=== PATIENT | male | born 1945 | race Native Hawaiian/Other Pacific Islander ===

== ENCOUNTER 2022-09-15 06:07 | Day surgery (SDC) | payer MEDICARE ==
--- NOTE | 2022-09-14 10:32 | HP ---
DATE OF SURGERY: 09/15/2022 HISTORY OF PRESENT ILLNESS: The patient is a 77-year-old male presents with history of some colon polyps and history of Meier's. The patient had some diarrhea here recently after eating some bad [place] food. He reports a lot of gas and occasional cramping. Denies rectal bleeding. He had a gastric bypass in 2014. PAST MEDICAL HISTORY: Diabetes. Depression. Coronary artery disease. Hyperlipidemia. Hypertension. Prostate cancer. PAST SURGICAL HISTORY: Prostatectomy. Cardiac stent. Bariatric bypass 2014. ALLERGIES: SULFA. MEDICATIONS: Amlodipine, glipizide, atorvastatin, duloxetine, losartan, hydrochlorothiazide, Jardiance, trazodone, metoprolol. FAMILY HISTORY: Heart disease. SOCIAL HISTORY: Former smoker, occasional alcohol. REVIEW OF SYSTEMS: CONSTITUTIONAL: Denies fever or chills. CHEST: Denies shortness of breath. CVS: Denies chest pain. ABDOMEN: Denies abdominal pain. PHYSICAL EXAMINATION: GENERAL: No acute distress. CHEST: Nonlabored. No shortness of breath. CVS: Regular rate and rhythm. ABDOMEN: Soft. IMPRESSION: History of Meier's esophagus and history of colon polyps. PLAN: EGD and colonoscopy with Dr. Colby Bunn. As dictated by Angeline Alan NP.
[2022-09-15] MEDS ORDERED: Lactated Ringers 1,000 ML IV SCH (06:30)
[2022-09-15 07:08] VITALS: O2SAT 92
[2022-09-15] MEDS ORDERED: Versed 2 MG/2 ML Injection ONE (11:16)
[2022-09-15] MEDS ORDERED: DIPRIVAN 200 MG/20 ML IV ONE ×2 (11:16→12:24)
[2022-09-15 13:12] VITALS: BP 157/93; PULSE 74
--- NOTE | 2022-09-15 14:10 | OP ---
SURGERY DATE/TIME: 09/15/2022 1203 PREOPERATIVE DIAGNOSIS: Meier's disease, history of colon polyps. POSTOPERATIVE DIAGNOSES: 1) EGD. Normal anastomosis, normal gastric bypass. 2) Colon. Moderate sigmoid diverticulosis, redundant colon. PROCEDURES: 1) EGD. 2) Colonoscopy to cecum. SURGEON: Colby Bunn M.D. ANESTHESIA: MAC. COMPLICATIONS: None. CONDITION: Stable. DESCRIPTION OF PROCEDURE: Patient taken to endoscopy. MAC sedation provided. Scope introduced. Pharyngoesophageal junction normal. Esophagus normal. Gastroesophageal junction satisfactory. There was a 90 cc pocket. There was a normal gastric jejunostomy with no marginal ulceration, irritation or problem. Scope withdrawn. Anal digital examination satisfactory. Scope introduced. Scope advanced to the cecum. Base of the cecum was satisfactory. The patient had redundant colon otherwise satisfactory. No problems were seen today. Rescope - He is elderly. I would rescope him PRN only.
[2022-09-15 17:11] LABS: 027 TOX PROD PRESUMPTIVE NEGATIVE (NEGATIVE)
[2022-09-15 19:20] LABS: TOXIGENIC C. DIFF ORG POSITIVE (NEGATIVE)
== END 2022-09-15 13:30 | disposition home or self-care (01) ==
LOC: SDC 06:07
PROVIDERS: ATTEND Surgery
DX: Z09 Encounter for follow-up examination after completed treatment for conditions other than malignant neoplasm (principal); Z86.010 Personal history of colon polyps; K22.70 Barrett's esophagus without dysplasia; K57.30 Diverticulosis of large intestine without perforation or abscess without bleeding; E11.9 Type 2 diabetes mellitus without complications
CPT/HCPCS: 82947; 87045; 87046; 87328; 87329; 87493; 99100; J2250; J2704

== ENCOUNTER 2024-09-15 11:49 | Emergency (ER) | payer MEDICARE ==
[2024-09-15 12:00] VITALS: TEMP 98.8
--- NOTE | 2024-09-15 12:18 | ERPHSYRPT ---
- History of Present Illness Time Seen by Provider: 09/15/24 12:18 Historian: patient Exam Limitations: no limitations Patient Subjective Stated Complaint: Abdominal pain Triage Nursing Assessment: Patient ambulated back to ED and transferred self to bed. Patient A+O X3. Patient's skin pink, warm and dry. Patient complains of left sided flank/abdominal pain / that started yesterday and has gotten worse today. Patient states yesterday he had N/V and diarrhea but denies today. Abdomen soft and round with BS X 4. Physician History: The patient presents with severe abdominal pain and constipation. He has been experiencing severe abdominal pain radiating to his back since Monday morning, with a pain level of ten out of ten. He initially suspected constipation as the cause, given the absence of a bowel movement since Monday. In an attempt to relieve constipation, he took Colace, but it did not result in a bowel movement. He denies any history of kidney stones and mentions a high fluid intake. He reports increased urination frequency without pain, burning, or blood in the urine. No vomiting has occurred, but he experienced dry heaving on Monday. He has chills and shaking but denies having a fever. Timing/Duration: yesterday Activities at Onset: rest Quality: sharpness, throbbing Abdominal Pain Onset Location: flank (left) Pain Radiation: no radiation Severity of Pain-Max: severe Severity of Pain-Current: severe Modifying Factors: Improves With: nothing. Worsens With: palpation, urinating Associated Symptoms: back, diarrhea, loss of appetite, nausea, No chest pain, No diaphoresis, No fever/chills, No vomiting Previous symptoms: no prior history Allergies/Adverse Reactions: Sulfa (Sulfonamide Antibiotics) Allergy (Verified 09/15/24 11:55) Hives NSAIDS (Non-Steroidal Anti-Inflamma Adverse Reaction (Verified 09/15/24 11:55) Home Medications: Amlodipine Besylate 5 mg [Norvasc 5 mg] 10 mg PO DAILY 08/29/22 [History] Aspirin EC 81 mg [Ecotrin 81 mg] 81 mg PO DAILY 08/29/22 [History] Atorvastatin Calcium 40 mg PO DAILY 08/29/22 [History] Duloxetine HCl 30 mg [Cymbalta 30 MG Capsule] 60 mg PO DAILY 08/29/22 [History] Glipizide 10 mg [Glucotrol 10 MG] 10 mg PO DAILY 08/29/22 [History] Hydrochlorothiazide 25 mg [hydroDIURIL 25 MG] 25 mg PO DAILY 08/29/22 [History] Losartan Potassium 100 mg PO DAILY 08/29/22 [History] Metoprolol Succinate 50 mg [Toprol Xl 50 MG] 50 mg PO DAILY 08/29/22 [History] Multivitamin 1 tab PO DAILY 08/29/22 [History] Hx Influenza Vaccination/Date Given: Yes Hx Pneumococcal Vaccination/Date Given: Yes Immunizations Up to Date: Yes Travel Risk - International Travel Have you traveled outside of the country in past 3 weeks: No - Emerging Infectious Disease Are you exhibiting symptoms associated with any current EIDs: No - Review of Systems All Other Systems: Reviewed and Negative - Past Medical History Pertinent Past Medical History: Yes Neurological History: No Pertinent History ENT History: No Pertinent History Cardiac History: Hypertension, Myocardial Infarction (CT) Respiratory History: Sleep Apnea Endocrine Medical History: Diabetes Type II Musculoskeletal History: No Pertinent History GI Medical History: Polyps History: No Pertinent History Psycho-Social History: Depression Male Reproductive Disorders: Prostate Cancer Other Medical History: rectal fissure - Past Surgical History Past Surgical History: Yes Neuro Surgical History: No Pertinent History Cardiac: Cardiac Catheterization, Cardiac Stent Respiratory: No Pertinent History Gastrointestinal: No Pertinent History Genitourinary: No Pertinent History Musculoskeletal: No Pertinent History Male Surgical History: Prostate Surgery Other Surgical History: baractic surgery 2014, protate cancer, prostatectomy, penile pump implant - Social History Smoking Status: Former smoker Exposure to second hand smoke: No Drug Use: none - Social Determinants of Health Will the patient participate in the screening: Yes Do you worry about a steady place to live?: No Do you have any problems with any of the following?: No known problems In the past 12 months,have you had to go without utilities?: No Transportation Issues: No Has anyone in your support network made you feel unsafe?: No Have you or anyone in your house had to go without enough: No - Nursing Vital Signs Nursing Vital Signs: Initial Vital Signs Temperature 98.8 F 09/15/24 11:55 Pulse Rate 73 09/15/24 11:55 Respiratory Rate 20 09/15/24 11:55 Blood Pressure 202/124 09/15/24 11:55 O2 Sat by Pulse Oximetry 96 09/15/24 11:55 Pain Scale Pain Intensity 3 - Physical Exam General Appearance: no apparent distress, obese Eye Exam: eyes nml inspection Ears, Nose, Throat Exam: normal ENT inspection Neck Exam: normal inspection, supple, full range of motion Respiratory Exam: airway intact, No respiratory distress Cardiovascular Exam: regular rate/rhythm, capillary refill <2 sec Gastrointestinal/Abdomen Exam: soft, tenderness (left flank), No distention, No mass, No guarding, No rebound Back Exam: CVA tenderness (left) Neurologic Exam: alert, oriented x 3, cooperative Skin Exam: normal color, warm, dry, No rash SpO2 Interpretation: normal SpO2: 96 O2 Delivery: Room Air - Course Nursing assessment & vital signs reviewed: Yes Ordered Tests: Active Orders 24 hr Category Date Time Status IV Insertion STAT Care 09/15/24 12:18 Active ABDOMEN AND PELVIS W/0 CONTRAS [CT] Stat Exams 09/15/24 12:34 Completed CBC W DIFF Stat Lab 09/15/24 12:27 Completed CMP Stat Lab 09/15/24 12:27 Completed CULTURE,URINE Stat Lab 09/15/24 12:24 Received LIPASE Stat Lab 09/15/24 12:27 Completed UA W/RFX UR CULTURE Stat Lab 09/15/24 12:24 Completed Medication Summary Discontinued Medications Generic Name Dose Route Start Last Admin Trade Name Freq PRN Reason Stop Dose Admin Hydralazine HCl 10 mg 09/15/24 13:04 09/15/24 13:11 Hydralazine Hcl 20 Mg/Ml Vial IV 09/15/24 13:05 10 mg STAT ONE Administration Hydralazine HCl Confirm 09/15/24 13:09 Hydralazine Hcl 20 Mg/Ml Vial Administered 09/15/24 13:10 Dose 20 mg .ROUTE .STK-MED ONE Sodium Chloride 1,000 mls @ 999 mls/hr 09/15/24 12:18 09/15/24 12:52 Sodium Chloride 0.9% 1000 Ml IV 09/15/24 13:18 999 mls/hr .Q1H1M STA Administration Sodium Chloride Confirm 09/15/24 12:49 Sodium Chloride 0.9% 1000 Ml Administered 09/15/24 12:50 Dose 1,000 mls @ ud .ROUTE .STK-MED ONE Ketorolac Tromethamine 30 mg 09/15/24 12:18 09/15/24 12:56 Ketorolac Tromethamine 30 Mg/Ml Inj IV 09/15/24 12:19 30 mg STAT ONE Administration Ketorolac Tromethamine Confirm 09/15/24 12:49 Ketorolac Tromethamine 30 Mg/Ml Inj Administered 09/15/24 12:50 Dose 30 mg .ROUTE .STK-MED ONE Tamsulosin HCl 0.8 mg 09/15/24 13:56 Tamsulosin Hcl 0.4 Mg Cap PO 09/15/24 13:57 STAT ONE Lab/Rad Data: Laboratory Result Diagrams 09/15/24 12:27 09/15/24 12:27 Laboratory Results 09/15/24 09/15/24 09/15/24 Range/Units 12:27 12:27 12:24 WBC 10.2 H (4.23-9.07) x10^3/uL RBC 5.87 (4.63-6.08) x10^6/uL Hgb 15.7 (13.7-17.5) g/dL Hct 49.3 (40.1-51.0) % MCV 84.0 (79.0-92.2) fL MCH 26.7 (25.7-32.2) pg MCHC 31.8 L (32.3-36.5) g/dL RDW 15.7 H (11.6-14.4) % Plt Count 211 (163-337) x10^3/uL MPV 10.9 (9.4-12.4) fL Gran % 69.5 H (34.0-67.9) % Immature Gran % (Auto) 0.4 (0.001-0.429) % Nucleat RBC Rel Count 0.0 (0.00-0.2) % Eos # (Auto) 0.24 (0.04-0.54) x10^3/uL Immature Gran # (Auto) 0.04 H (0.001-0.031) x10^3u/L Absolute Lymphs (auto) 1.99 (1.32-3.57) x10^3/uL Absolute Monos (auto) 0.78 (0.30-0.82) x10^3/uL Absolute Nucleated RBC 0.00 (0.00-0.012) x10^3u/L Lymphocytes % 19.6 L (21.8-53.1) % Monocytes % 7.7 (5.3-12.2) % Eosinophils % 2.4 (0.8-7.0) % Basophils % 0.4 (0.2-1.2) % Absolute Granulocytes 7.07 H (1.78-5.38) x10^3/uL Basophils # 0.04 (0.01-0.08) x10^3/uL Sodium 141 (135-145) mmol/L Potassium 3.7 (3.5-5.1) mmol/L Chloride 104 (98-107) mmol/L Carbon Dioxide 30 (22-30) mmol/L Anion Gap 11.4 (5-15) MEQ/L BUN 25 H (9-20) mg/dL Creatinine 1.23 (0.66-1.25) mg/dL Estimated GFR 59.4 ML/MIN Glucose 126 H (74-106) mg/dL Calcium 9.8 (8.4-10.2) mg/dL Total Bilirubin 0.60 (0.2-1.3) mg/dL AST 28 (17-59) U/L ALT 22 (0-50) U/L Alkaline Phosphatase 92 (38-126) U/L Serum Total Protein 7.8 (6.3-8.2) g/dL Albumin 4.5 (3.5-5.0) g/dL Lipase 17 L (23-300) U/L Urine Color Yellow (Yellow) Urine Appearance Clear (Clear) Urine pH 6.0 (4.6-8.0) Ur Specific Boaz 1.025 (1.005-1.030) Urine Protein 300 A (Negative) Urine Glucose (UA) 250 A (Negative) mg/dL Urine Ketones Negative (Negative) Urine Blood Small A (Negative) Urine Nitrite Negative (Negative) Urine Bilirubin Negative (Negative) Urine Urobilinogen 0.2 (0.2) mg/dL Ur Leukocyte Esterase Negative (Negative) U Hyaline Cast (Auto) NONE SEEN (0-2) /LPF Urine Microscopic RBC 3-5 (0-5) /HPF Urine Microscopic WBC 0-2 (0-5) /HPF Ur Epithelial Cells Rare (None Seen) /HPF Urine Bacteria None Seen (None Seen) /HPF Urine Culture Reflexed YES (NO) - Progress Progress: improved Progress Note: 09/15/24 12:23 Patients symptoms not typical for emergent causes of abdominal pain such as, but not limited to, appendicitis, abdominal aortic aneurysm, surgical biliary disease, pancreatitis, SBO, mesenteric ischemia, serious intra-abdominal bacterial illness, genital torsion. Doubt atypical ACS. Suspicion for left sided nephrolithiasis. CBC, CMP, Lipase, UA and CT abd/pelvis ordered. 1L NS bolus given. Ketorolac given for pain cont rol. Pt tolerating PO. Disposition: Patient will be discharged with strict return precautions and follow up with primary MD within 12-24 hours for further evaluation. Patient understands that this still may have an early presentation of an emergent medical condition such as appendicitis that will require a recheck. 09/15/24 14:13 CT shows left distal ureteric calculus with obstruction from small calculi, hydrops gallbladder and bilateral adrenal lesions. Discussed results, advised f/u with PCP for hydrops GB and adrenal lesions. BP improved after tx with Hydralazine. Labs unremarkable, no evidence of infection. Counseled pt/family regarding: lab results, diagnosis, need for follow-up, rad results Medical Desision Making - Diagnostic Testing Diagnostic test were ordered, analyzed, and reviewed by me: Yes Radiological Interpretation: Interpreted by me - Risk of complications The pt has a mod risk of morbidity or mortality based on: Need for prescription drug management - Departure Departure Disposition: Home Clinical Impression: Left ureteral calculus, Gallbladder hydrops, Mass of both adrenal glands Condition: Good Critical Care Time: No Referrals: BERNADINE HUGO MD [Primary Care Provider] - Follow up/PCP as directed ANNY BARRAZA [ACTIVE STAFF] - Follow up/PCP as directed Instructions: Kidney stones in adults Prescriptions: Tamsulosin HCl 0.4 mg [Flomax 0.4 MG] 0.4 mg PO DAILY 14 Days #14 cap Hydrocodone/Acetaminophen [Hydrocodone-Acetamin 7.5-325] 1 each PO Q6H PRN 5 Days #20 tablet MDD 4 tabs PRN Reason: Moderate To Severe Pain
[2024-09-15 12:28] LABS: Absolute Neutrophil Ct (ANC) 7.07 x10^3/uL (1.78-5.38); BASOPHIL % 0.4 % (0.2-1.2); Basophil (Absolute #) 0.04 x10^3/uL (0.01-0.08); Eosinophil % 2.4 % (0.8-7.0); Eosinophil (Absolute #) 0.24 x10^3/uL (0.04-0.54); Hematocrit 49.3 % (40.1-51.0); Hemoglobin 15.7 g/dL (13.7-17.5); IMMATURE GRAN # 0.04 x10^3u/L (0.001-0.031); IMMATURE GRAN % 0.4 % (0.001-0.429); Lymphocyte (Absolute #) 1.99 x10^3/uL (1.32-3.57); Lymphocytes % 19.6 % (21.8-53.1); Mean Corpuscular Hemoglobin 26.7 pg (25.7-32.2); Mean Corpuscular Hgb Concent. 31.8 g/dL (32.3-36.5); Mean Platelet Volume 10.9 fL (9.4-12.4); Monocyte (Absolute #) 0.78 x10^3/uL (0.30-0.82); Monocytes % 7.7 % (5.3-12.2); Neutrophil % 69.5 % (34.0-67.9); Platelet Count 211 x10^3/uL (163-337); Red Blood Count 5.87 x10^6/uL (4.63-6.08); Red Cell Distribution Width 15.7 % (11.6-14.4); White Blood Count 10.2 x10^3/uL (4.23-9.07)
[2024-09-15 12:38] LABS: Appearance Clear (Clear); Bacteria None Seen /HPF (None Seen); Bilirubin Negative (Negative); Blood Small (Negative); Epithelial Cells Rare /HPF (None Seen); Glucose, Urine 250 mg/dL (Negative); Hyaline Casts NONE SEEN /LPF (0-2); Ketones Negative (Negative); Leukocyte Esterase Negative (Negative); Nitrite Negative (Negative); Protein,Urine Dip 300 (Negative); Specific Gravity 1.025 (1.005-1.030); Urobilinogen 0.2 mg/dL (0.2); WBC 0-2 /HPF (0-5)
[2024-09-15 12:42] LABS: ALBUMIN 4.5 g/dL (3.5-5.0); ANION GAP 11.4 MEQ/L (5-15); BILIRUBIN,TOTAL 0.6 mg/dL (0.2-1.3); Calcium 9.8 mg/dL (8.4-10.2); Creatinine 1 1.23 mg/dL (0.66-1.25); EST GLOMERULAR FILTRATION RATE 59.4 ML/MIN; Potassium 3.7 mmol/L (3.5-5.1); Total Protein 7.8 g/dL (6.3-8.2)
[2024-09-15] MEDS ORDERED: TORAdol 30 mg Injection ONE (12:49)
[2024-09-15] MEDS ORDERED: Sodium Chloride 0.9% 1000 ML 1,000 ML ONE (12:49)
[2024-09-15] MEDS: Sodium Chloride 0.9% 1000 ML 1,000 ML IV STA (12:52)
[2024-09-15] MEDS: TORAdol 30 mg Injection IV ONE (12:56)
[2024-09-15] MEDS ORDERED: APRESOLINE 20 MG/ML INJ ONE (13:09)
[2024-09-15] MEDS: APRESOLINE 20 MG/ML INJ IV ONE (13:11)
--- NOTE | 2024-09-15 13:50 | XRAY ---
CLINICAL HISTORY: abd pain COMPARISON: No prior studies are available for comparison. TECHNIQUE: Non-contrast CT of the abdomen and pelvis was performed, with the following protocol: axial images, and reconstructed coronal and sagittal images. One of the following dose reduction techniques was utilized for this exam: Automated exposure control, adjustment of the mA and/or kV according to patient size, and use of iterative reconstruction. FINDINGS: Abdomen: Liver: Normal in size, shape, and density. No focal lesions, cysts, or masses were identified. Gallbladder and Biliary System: The gallbladder is distended measuring about 12 cm long dimension. No wall thickening, pericholecystic fluid, or gallstones were identified. Pancreas: Pancreatic head, body, and tail are visualized and appear normal in size and density. No pancreatic masses or calcifications were noted. Spleen: Normal in size, shape, and density. No splenic lesions or masses were identified. Kidneys and Adrenal Glands: Tiny zeenat calculus noted at the distal left ureter just before the vesico-ureteric junction, causing mild hydroureter and hydronephrosis with perinephric fat stranding, A small left renal calculi also noted. The right kidney is normal in size, shape, and position. Cortical thickness is within normal limits. Two tiny lower pole renal calculi noted not associated with hydronephrosis. Bilateral adrenal small soft tissue lesion noted, likely adenomas. Abdominal Aorta and Vessels: The abdominal aorta and major branches are patent without evidence of an aneurysm. Diffuse atherosclerosis noted. Pelvis: Urinary Bladder: Normal in contour and wall thickness. No intraluminal lesions. Prostate: Normal in size and contour. No masses or abnormal thickening. Seminal Vesicles: Normal appearance without abnormal enlargement or mass. Peritoneal and Retroperitoneal Structures: No free fluid or abnormal fluid collections were identified within the abdomen or pelvis. No lymphadenopathy was noted. Bowel: The visualized bowel loops are normal in caliber and appearance. Surgicali stitches are seen at the stomach likely due to sleeve surgery, for clinical correlation. No evidence of bowel obstruction or wall thickening. Non-complicated descending and sigmoid diverticulosis. The appendix is normal with no features of appendicitis. Bones and Soft Tissues: Pelvic bones and soft tissues are unremarkable. No fractures or abnormal masses were identified. IMPRESSION: 1. Tiny left distal ureteric calculus causing acute left renal obstruction with small renal calculi. 2. Small non-obstructive right renal calculi. 3. Gall bladder distention suggests hydrops with no biliary obstructive lesion suggesting non-specific changes. 4. Bilateral adrenal lesions: further evaluation with CT/MRI is advised. 5. Non-complicated colonic diverticulosis. Electronically Signed by: Lubna Soares MD. (09/15/2024 13:45:00 EST)
[2024-09-15 14:03] VITALS: O2SAT 96
[2024-09-15] MEDS ORDERED: Flomax 0.4 MG ONE (14:14)
[2024-09-15] MEDS: Flomax 0.4 MG PO ONE (14:15)
[2024-09-15 14:29] VITALS: BP 150/93; PULSE 72; RESP 18
== END 2024-09-15 14:29 | disposition home or self-care (01) ==
LOC: ED 11:49
DX: N20.1 Calculus of ureter (principal); K82.1 Hydrops of gallbladder; E27.9 Disorder of adrenal gland, unspecified; R10.9 Unspecified abdominal pain; K59.00 Constipation, unspecified; I10 Essential (primary) hypertension; E11.9 Type 2 diabetes mellitus without complications; Z79.891 Long term (current) use of opiate analgesic; Z79.84 Long term (current) use of oral hypoglycemic drugs; Z79.899 Other long term (current) drug therapy
CPT/HCPCS: 36415; 74176; 80053; 81001; 83690; 85025; 87086; 96374; 96375; 99284; J0360; J1885; A9270-GY

== ENCOUNTER 2024-09-20 10:16 | Emergency (ER) | payer MEDICARE ==
--- NOTE | 2024-09-20 10:28 | ERPHSYRPT ---
- History of Present Illness Time Seen by Provider: 09/20/24 10:27 Historian: patient, EMS, old records Exam Limitations: no limitations Physician History: This is an 79-year-old white male patient who is obese and brought to the emergency department by the hand coke drawer service. He is a patient of Dr. Hugo. Patient was seen in the emergency department on 09/15/2024 and diagnosed with left ureteral calculus and gallbladder hydrops. Patient has not been seen by urology or general surgery at this time. Yesterday, patient began having more significant left flank pain and took an extra pain pill this morning. Patient got up to walk his dog and began having some mild chest pain while walking. He took a nitroglycerin tablet which completely relieved his chest pain. He has no chest pain on arrival to the emergency department. He began having some nausea and dry heaves this morning. Patient has a history of coronary artery disease with a cardiac stent in place. He has a history of hypertension, depression, hyperlipidemia and diabetes. Timing/Duration: yesterday Activities at Onset: other (Walking the dog) Quality: aching Abdominal Pain Onset Location: flank (Left flank) Pain Radiation: no radiation Severity of Pain-Max: moderate Severity of Pain-Current: moderate Modifying Factors: Improves With: nothing Associated Symptoms: chest pain (Now resolved. Occurred this morning. Resolved after taking a single nitroglycerin tablet sublingually), nausea (And dry heaves) Previous symptoms: same symptoms as today, recently seen, recently treated Allergies/Adverse Reactions: Sulfa (Sulfonamide Antibiotics) Allergy (Verified 09/20/24 10:38) Hives NSAIDS (Non-Steroidal Anti-Inflamma Adverse Reaction (Verified 09/20/24 10:38) Home Medications: Amlodipine Besylate 5 mg [Norvasc 5 mg] 10 mg PO DAILY 08/29/22 [History] Aspirin EC 81 mg [Ecotrin 81 mg] 81 mg PO DAILY 08/29/22 [History] Atorvastatin Calcium 40 mg PO DAILY 08/29/22 [History] Duloxetine HCl 30 mg [Cymbalta 30 MG Capsule] 60 mg PO DAILY 08/29/22 [History] Glipizide 10 mg [Glucotrol 10 MG] 10 mg PO DAILY 08/29/22 [History] Hydrochlorothiazide 25 mg [hydroDIURIL 25 MG] 25 mg PO DAILY 08/29/22 [History] Losartan Potassium 100 mg PO DAILY 08/29/22 [History] Metoprolol Succinate 50 mg [Toprol Xl 50 MG] 50 mg PO DAILY 08/29/22 [History] Multivitamin 1 tab PO DAILY 08/29/22 [History] Hx Influenza Vaccination/Date Given: Yes Hx Pneumococcal Vaccination/Date Given: Yes Travel Risk - International Travel Have you traveled outside of the country in past 3 weeks: No - Emerging Infectious Disease Are you exhibiting symptoms associated with any current EIDs: No - Review of Systems Constitutional: No Symptoms Eyes: No Symptoms Ears, Nose, & Throat: No Symptoms Respiratory: No Symptoms Cardiac: No Symptoms Abdominal/Gastrointestinal: Nausea, Vomiting (And dry heaves), Appetite Changes Genitourinary Symptoms: Flank Pain (Left flank pain) Musculoskeletal: No Symptoms Skin: No Symptoms Neurological: No Symptoms Psychological: No Symptoms Endocrine: No Symptoms Hematologic/Lymphatic: No Symptoms Immunological/Allergic: No Symptoms All Other Systems: Reviewed and Negative - Past Medical History Pertinent Past Medical History: Yes Neurological History: No Pertinent History ENT History: No Pertinent History Cardiac History: Hypertension, Myocardial Infarction ([place]) Respiratory History: Sleep Apnea Endocrine Medical History: Diabetes Type II Musculoskeletal History: No Pertinent History GI Medical History: Polyps History: No Pertinent History Psycho-Social History: Depression Male Reproductive Disorders: Prostate Cancer Other Medical History: rectal fissure - Past Surgical History Past Surgical History: Yes Neuro Surgical History: No Pertinent History Cardiac: Cardiac Catheterization, Cardiac Stent Respiratory: No Pertinent History Gastrointestinal: No Pertinent History Genitourinary: No Pertinent History Musculoskeletal: No Pertinent History Male Surgical History: Prostate Surgery Other Surgical History: baractic surgery 2014, protate cancer, prostatectomy, penile pump implant - Social History Smoking Status: Former smoker Exposure to second hand smoke: No Drug Use: none - Social Determinants of Health Will the patient participate in the screening: Yes Do you worry about a steady place to live?: No In the past 12 months,have you had to go without utilities?: No Transportation Issues: No Has anyone in your support network made you feel unsafe?: No Have you or anyone in your house had to go without enough: No - Nursing Vital Signs Nursing Vital Signs: Initial Vital Signs Pulse Rate 100 H 09/20/24 10:27 Respiratory Rate 24 09/20/24 10:27 Blood Pressure 130/89 09/20/24 10:27 O2 Sat by Pulse Oximetry 92 L 09/20/24 10:27 Pain Scale Pain Intensity 9 - Physical Exam General Appearance: mild distress, alert, anxiety, obese Eye Exam: PERRL/EOMI, eyes nml inspection Ears, Nose, Throat Exam: normal ENT inspection, moist mucous membranes Neck Exam: normal inspection, non-tender, supple, full range of motion Respiratory Exam: normal breath sounds, lungs clear, airway intact, No chest tenderness, No respiratory distress Cardiovascular Exam: regular rate/rhythm, normal heart sounds, normal peripheral pulses Gastrointestinal/Abdomen Exam: soft, normal bowel sounds, No tenderness Rectal Exam: not done Back Exam: normal inspection, normal range of motion, CVA tenderness (Left side), No vertebral tenderness Extremity Exam: normal inspection, normal range of motion, pelvis stable Neurologic Exam: alert, oriented x 3, cooperative, 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 nml as tested, sensation nml Skin Exam: normal color, warm, dry Lymphatic Exam: No adenopathy SpO2 Interpretation: normal - Course Nursing assessment & vital signs reviewed: Yes Ordered Tests: Active Orders 24 hr Category Date Time Status ABDOMEN AND PELVIS W/0 CONTRAS [CT] Stat Exams 09/20/24 10:28 Completed AMYLASE Stat Lab 09/20/24 11:05 Completed CBC W DIFF Stat Lab 09/20/24 11:05 Completed CMP Stat Lab 09/20/24 11:05 Completed LIPASE Stat Lab 09/20/24 11:05 Completed TROPONIN Q4H Lab 09/20/24 11:05 Completed TROPONIN Q4H Lab 09/20/24 14:30 Ordered TROPONIN Q4H Lab 09/20/24 18:30 Ordered UA W/RFX UR CULTURE Stat Lab 09/20/24 10:28 Ordered Medication Summary Generic Name Dose Route Start Last Admin Trade Name Freq PRN Reason Stop Dose Admin Sodium Chloride 1,000 mls @ 100 mls/hr 09/20/24 10:30 09/20/24 10:43 Sodium Chloride 0.9% 1000 Ml IV 10/20/24 10:29 100 mls/hr .Q10H NOHEMY Administration Discontinued Medications Generic Name Dose Route Start Last Admin Trade Name Freq PRN Reason Stop Dose Admin Morphine Sulfate 4 mg 09/20/24 10:30 09/20/24 10:43 Morphine Sulfate 4 Mg/Ml Injection IV 09/20/24 10:31 4 mg STAT ONE Administration Morphine Sulfate Confirm 09/20/24 10:41 Morphine Sulfate 4 Mg/Ml Injection Administered 09/20/24 10:42 Dose 4 mg .ROUTE .STK-MED ONE Ondansetron HCl 4 mg 09/20/24 10:27 09/20/24 10:43 Ondansetron Hcl 4 Mg/2 Ml Vial IV 09/20/24 10:28 4 mg STAT ONE Administration Ondansetron HCl Confirm 09/20/24 10:41 Ondansetron Hcl 4 Mg/2 Ml Vial Administered 09/20/24 10:42 Dose 4 mg .ROUTE .STK-MED ONE Lab/Rad Data: Laboratory Result Diagrams 09/20/24 11:05 09/20/24 11:05 Laboratory Results 09/20/24 09/20/24 09/20/24 Range/Units 11:05 11:05 11:05 WBC 5.2 (4.23-9.07) x10^3/uL RBC 5.56 (4.63-6.08) x10^6/uL Hgb 14.8 (13.7-17.5) g/dL Hct 45.9 (40.1-51.0) % MCV 82.6 (79.0-92.2) fL MCH 26.6 (25.7-32.2) pg MCHC 32.2 L (32.3-36.5) g/dL RDW 15.9 H (11.6-14.4) % Plt Count 182 (163-337) x10^3/uL MPV 11.0 (9.4-12.4) fL Gran % 93.6 H (34.0-67.9) % Immature Gran % (Auto) 0.4 (0.001-0.429) % Nucleat RBC Rel Count 0.0 (0.00-0.2) % Eos # (Auto) 0.03 L (0.04-0.54) x10^3/uL Immature Gran # (Auto) 0.02 (0.001-0.031) x10^3u/L Absolute Lymphs (auto) 0.22 L (1.32-3.57) x10^3/uL Absolute Monos (auto) 0.04 L (0.30-0.82) x10^3/uL Absolute Nucleated RBC 0.00 (0.00-0.012) x10^3u/L Lymphocytes % 4.2 L (21.8-53.1) % Monocytes % 0.8 L (5.3-12.2) % Eosinophils % 0.6 L (0.8-7.0) % Basophils % 0.4 (0.2-1.2) % Absolute Granulocytes 4.86 (1.78-5.38) x10^3/uL Basophils # 0.02 (0.01-0.08) x10^3/uL Sodium 140 (135-145) mmol/L Potassium 4.0 (3.5-5.1) mmol/L Chloride 110 H (98-107) mmol/L Carbon Dioxide 19 L (22-30) mmol/L Anion Gap 14.8 (5-15) MEQ/L BUN 33 H (9-20) mg/dL Creatinine 1.38 H (0.66-1.25) mg/dL Estimated GFR 51.7 ML/MIN Glucose 79 (74-106) mg/dL Calcium 9.1 (8.4-10.2) mg/dL Total Bilirubin 0.60 (0.2-1.3) mg/dL AST 41 (17-59) U/L ALT 22 (0-50) U/L Alkaline Phosphatase 106 (38-126) U/L Troponin I 0.027 (0.000-0.033) ng/mL Serum Total Protein 6.4 (6.3-8.2) g/dL Albumin 3.6 (3.5-5.0) g/dL Amylase 41 (30-110) U/L Lipase 16 L (23-300) U/L - Progress Progress: improved, pain not gone completely, re-examined Progress Note: 09/20/24 11:17 My medical decision making and the assignment of moderate complexity is based on review of the patient's past medical history, review the patient's medication list, reviewed patient drug allergy list, history present illness and physical findings on examination. The workup in this patient includes placement of intravenous line, infusion of normal saline solution, infusion of 4 mg of Zofran 4 mg of intravenous morphine, CBC, CMP, amylase, lipase, CT scan of the abdomen pelvis without contrast, urinalysis, twelve-lead EKG, troponin level. Differential diagnosis includes but is not limited to myocardial infarction, arrhythmia, electrolyte abnormalities, urinary tract infection, dehydration, worsening left ureteral calculus 09/20/24 12:54 Patient spilled his urine specimen all over the floor. The remainder of the laboratory data results do not show anything acute or emergent. The patient does not have chest pain. The patient does not want to stay. He does not want to provide another urine specimen. He wants to leave AGAINST MEDICAL ADVICE. I explained to the patient the importance of completing the workup. He is awake alert and oriented and of sound mind. We will have him sign the AGAINST MEDICAL ADVICE form. 09/20/24 12:[address] scan of the abdomen pelvis without contrast results with this patient. There is a new 1 cm proximal left ureteral calculus producing obstructive uropathy. There is also new, left renal calyx air bubble concerning for gas-forming infection. There is a markedly distended gallbladder without stones present. I will provide the patient with oral antibiotic now and send a prescription to his pharmacy. Patient was encouraged to follow-up in the emergency department if symptoms worsen despite him leaving AGAINST MEDICAL ADVICE. He was also told he could come back to our facility but another option is to proceed to an emergency department at a hospital where there is a urologist that can be consulted if his symptoms worsen. Counseled pt/family regarding: lab results, diagnosis, need for follow-up, rad results Medical Desision Making - Independent Historian Additional History obtained from: Family - Diagnostic Testing Diagnostic test were ordered, analyzed, and reviewed by me: Yes Radiological Interpretation: Reviewed by me, Teleradiologist Report - Risk of complications The pt has a mod risk of morbidity or mortality based on: Need for prescription drug management - Departure Departure Disposition: AMA Clinical Impression: Left flank pain, Left ureteral calculus Condition: Stable Critical Care Time: No Referrals: BERNADINE HUGO MD [Primary Care Provider] - Follow up/PCP as directed Additional Instructions: Drink plenty of fluids. Take your medications as prescribed. Return to the emergency department if symptoms worsen. Another option is to proceed to an emergency department of a hospital where urologist is on-call. Prescriptions: Ciprofloxacin [Cipro 500 MG] 500 mg PO BID #14 tablet
[2024-09-20] MEDS ORDERED: MORPHINE SULFATE 4 MG INJ ONE ×2 (10:41→16:04)
[2024-09-20] MEDS ORDERED: Sodium Chloride 0.9% 1000 ML 1,000 ML ONE (10:41)
[2024-09-20] MEDS ORDERED: Zofran 4 MG/2 ML VIAL ONE (10:41)
[2024-09-20] MEDS: Sodium Chloride 0.9% 1000 ML 1,000 ML IV SCH (10:43)
[2024-09-20] MEDS: MORPHINE SULFATE 4 MG INJ IV ONE ×2 (10:43→16:05)
[2024-09-20] MEDS: Zofran 4 MG/2 ML VIAL IV ONE (10:43)
[2024-09-20 11:05] LABS: Absolute Neutrophil Ct (ANC) 4.86 x10^3/uL (1.78-5.38); BASOPHIL % 0.4 % (0.2-1.2); Basophil (Absolute #) 0.02 x10^3/uL (0.01-0.08); Eosinophil % 0.6 % (0.8-7.0); Eosinophil (Absolute #) 0.03 x10^3/uL (0.04-0.54); Hematocrit 45.9 % (40.1-51.0); Hemoglobin 14.8 g/dL (13.7-17.5); IMMATURE GRAN # 0.02 x10^3u/L (0.001-0.031); IMMATURE GRAN % 0.4 % (0.001-0.429); Lymphocyte (Absolute #) 0.22 x10^3/uL (1.32-3.57); Lymphocytes % 4.2 % (21.8-53.1); Mean Cell Volume 82.6 fL (79.0-92.2); Mean Corpuscular Hemoglobin 26.6 pg (25.7-32.2); Mean Corpuscular Hgb Concent. 32.2 g/dL (32.3-36.5); Monocyte (Absolute #) 0.04 x10^3/uL (0.30-0.82); Monocytes % 0.8 % (5.3-12.2); Neutrophil % 93.6 % (34.0-67.9); Platelet Count 182 x10^3/uL (163-337); Red Blood Count 5.56 x10^6/uL (4.63-6.08); Red Cell Distribution Width 15.9 % (11.6-14.4); White Blood Count 5.2 x10^3/uL (4.23-9.07)
[2024-09-20 11:22] LABS: ALBUMIN 3.6 g/dL (3.5-5.0); ANION GAP 14.8 MEQ/L (5-15); BILIRUBIN,TOTAL 0.6 mg/dL (0.2-1.3); Calcium 9.1 mg/dL (8.4-10.2); Creatinine 1 1.38 mg/dL (0.66-1.25); EST GLOMERULAR FILTRATION RATE 51.7 ML/MIN; Total Protein 6.4 g/dL (6.3-8.2)
--- NOTE | 2024-09-20 12:12 | XRAY ---
Indication: Left flank pain. History renal stones. Multiple contiguous axial images obtained through the abdomen and pelvis without contrast using renal stone protocol. Comparison: September 15, 2024. Study is now slightly degraded by respiration artifact. Lung bases not demonstrates mild dependent atelectasis. Stable tiny posterior left base calcified granuloma. No infiltrate or effusion. Heart remains borderline enlarged. Stable small hiatal hernia with now fluid distended esophagus favoring GERD. Previous left UVJ punctate calculus has passed. New 1 cm proximal left ureter calculus, approximately L3 level. Again mildly hydronephrotic left kidney with now mild perinephric stranding/edema and tiny perinephric fluid favoring obstructive uropathy. Left mid renal calyx demonstrates new air bubble, possible superimposed gas-forming infection. There remains a few bilateral renal micro-calculi. Noncontrasted stomach and bowel loops appear nonobstructed again with normal appendix. Stable scattered descending/sigmoid diverticulosis, markedly distended gallbladder without gallstones, and small left adrenal adenoma. No free fluid/air. Remaining liver, gallbladder, pancreas, spleen, adrenal glands, and bladder are unremarkable for noncontrast exam. Again mild scattered aortoiliac calcifications without AAA. Impression: 1. Respiration artifact. 2. New 1 cm proximal left ureteral calculus producing obstructive uropathy as detailed. Also new left renal calyx air bubble concerning for gas-forming infection. Again multiple bilateral renal micro-calculi. 3. Stable small hiatal hernia with new finding favoring GERD. 4. Again markedly distended gallbladder without gallstones. 5. Chronic findings including borderline cardiomegaly, colonic diverticulosis, arteriosclerotic disease, left adrenal adenoma, and arteriosclerotic disease.
[2024-09-20] MEDS ORDERED: Levofloxacin 500 MG Tablet ONE (13:07)
[2024-09-20] MEDS: Levofloxacin 500 MG Tablet PO ONE (13:08)
[2024-09-20] MEDS ORDERED: TORAdol 30 mg Injection ONE (13:28)
[2024-09-20] MEDS: TORAdol 30 mg Injection IM ONE (13:32)
[2024-09-20 14:02] LABS: Slide Review 1 YES
[2024-09-20] MEDS ORDERED: Norflex 60 MG/2 ML ONE (16:52)
[2024-09-20] MEDS: Norflex 60 MG/2 ML IV ONE (16:53)
[2024-09-20 19:08] LABS: Appearance Turbid (Clear); Bacteria Many /HPF (None Seen); Bilirubin Small (Negative); Blood Large (Negative); Epithelial Cells Many /HPF (None Seen); Glucose, Urine 500 mg/dL (Negative); Ketones Trace (Negative); Leukocyte Esterase Large (Negative); Nitrite Negative (Negative); Protein,Urine Dip 100 (Negative); RBC 51-100 /HPF (0-5); WBC >100 /HPF (0-5)
[2024-09-20 19:12] VITALS: BP 116/92; PULSE 63; RESP 20; O2SAT 94
== END 2024-09-20 19:35 | disposition short-term general hospital (02) ==
LOC: ED 10:16
DX: R10.9 Unspecified abdominal pain (principal); N20.1 Calculus of ureter; N13.9 Obstructive and reflux uropathy, unspecified; R07.9 Chest pain, unspecified; R77.8 Other specified abnormalities of plasma proteins; M54.9 Dorsalgia, unspecified; N39.0 Urinary tract infection, site not specified; R11.2 Nausea with vomiting, unspecified; I10 Essential (primary) hypertension; E78.5 Hyperlipidemia, unspecified; E11.9 Type 2 diabetes mellitus without complications; Z79.84 Long term (current) use of oral hypoglycemic drugs; Z79.899 Other long term (current) drug therapy
CPT/HCPCS: 36415; 74176; 80053; 81001; 82150; 83690; 84484; 85025; 87077; 87086; 87186; 93005; 96372; 96374; 96375; 96376; 99285; J1885; J2270; J2360; J2405; A9270-GY

== ENCOUNTER 2024-10-03 16:15 | Observation (INO) | payer MEDICARE ==
--- NOTE | 2024-10-03 16:54 | ERPHSYRPT ---
- History of Present Illness Time Seen by Provider: 10/03/24 16:18 Historian: patient, family Exam Limitations: no limitations Patient Subjective Stated Complaint: pt states that he was getting up off the toilet raise and fell last night. pt states that he hit his left side Triage Nursing Assessment: pt came into the er via wheelchair; pt transfer to cot with standby assist; c/o left abd pain; abd round, soft, tender; denies N/V/D; states 10/10 pain to left abd; skin PDW; no respiratory distress present; vitals wnl Physician History: 79 years old male with history of atrial fibrillation on Eliquis, coronary artery disease with CABG, hypertension, hyperlipidemia, kidney stones status post ureteral stent placement almost a week ago at [facility] presented in the ER after he was trying to get off of the toilet and the side rail broke, hit his left flank against the porcelain toilet yesterday. Patient reports moderate to severe sharp pain in the left flank. Took Gordon leftover from previous kidney stone and feeling better but pain is back and has no more pain medication. Does report having mild hematuria which is there since stent placement. Did not hit his head, no loss of consciousness. No injury anywhere else. Allergies/Adverse Reactions: Sulfa (Sulfonamide Antibiotics) Allergy (Verified 10/03/24 16:37) Hives NSAIDS (Non-Steroidal Anti-Inflamma Adverse Reaction (Verified 10/03/24 16:37) Home Medications: Amlodipine Besylate 5 mg [Norvasc 5 mg] 10 mg PO DAILY 08/29/22 [History] Aspirin EC 81 mg [Ecotrin 81 mg] 81 mg PO DAILY 08/29/22 [History] Atorvastatin Calcium 40 mg PO DAILY 08/29/22 [History] Duloxetine HCl 30 mg [Cymbalta 30 MG Capsule] 60 mg PO DAILY 08/29/22 [History] Glipizide 10 mg [Glucotrol 10 MG] 10 mg PO DAILY 08/29/22 [History] Hydrochlorothiazide 25 mg [hydroDIURIL 25 MG] 25 mg PO DAILY 08/29/22 [History] Losartan Potassium 100 mg PO DAILY 08/29/22 [History] Metoprolol Succinate 50 mg [Toprol Xl 50 MG] 50 mg PO DAILY 08/29/22 [History] Multivitamin 1 tab PO DAILY 08/29/22 [History] Hx Tetanus, Diphtheria Vaccination/Date Given: No Hx Influenza Vaccination/Date Given: Yes Hx Pneumococcal Vaccination/Date Given: Yes Travel Risk - International Travel Have you traveled outside of the country in past 3 weeks: No - Emerging Infectious Disease Are you exhibiting symptoms associated with any current EIDs: No - Review of Systems Constitutional: No Symptoms Ears, Nose, & Throat: No Symptoms Respiratory: No Symptoms Cardiac: No Symptoms Abdominal/Gastrointestinal: Abdominal Pain Genitourinary Symptoms: Hematuria Musculoskeletal: Arthralgias, Back Pain Skin: No Symptoms Neurological: No Symptoms Immunological/Allergic: No Symptoms - Past Medical History Pertinent Past Medical History: Yes Neurological History: No Pertinent History ENT History: No Pertinent History Cardiac History: Hypertension, Myocardial Infarction (IA) Respiratory History: Sleep Apnea Endocrine Medical History: Diabetes Type II Musculoskeletal History: No Pertinent History GI Medical History: Polyps History: No Pertinent History Psycho-Social History: Depression Male Reproductive Disorders: Prostate Cancer Other Medical History: rectal fissure - Past Surgical History Past Surgical History: Yes Neuro Surgical History: No Pertinent History Cardiac: Cardiac Catheterization, Cardiac Stent Respiratory: No Pertinent History Gastrointestinal: No Pertinent History Genitourinary: No Pertinent History Musculoskeletal: No Pertinent History Male Surgical History: Prostate Surgery Other Surgical History: baractic surgery 2014, protate cancer, prostatectomy, penile pump implant - Social History Smoking Status: Former smoker Exposure to second hand smoke: No Drug Use: none - Social Determinants of Health Will the patient participate in the screening: Yes Do you worry about a steady place to live?: No Do you have any problems with any of the following?: No known problems In the past 12 months,have you had to go without utilities?: No Transportation Issues: No Has anyone in your support network made you feel unsafe?: No Have you or anyone in your house had to go without enough: No - Nursing Vital Signs Nursing Vital Signs: Initial Vital Signs Blood Pressure 145/82 10/03/24 16:36 O2 Sat by Pulse Oximetry 94 L 10/03/24 16:36 Pain Scale Pain Intensity 3 - Physical Exam General Appearance: no apparent distress Eye Exam: eyes nml inspection Ears, Nose, Throat Exam: normal ENT inspection Neck Exam: normal inspection, full range of motion Respiratory Exam: normal breath sounds, lungs clear Cardiovascular Exam: regular rate/rhythm, normal heart sounds Gastrointestinal/Abdomen Exam: soft, normal bowel sounds, tenderness (Left anterior upper abdomen/flank) Back Exam: normal inspection, normal range of motion, CVA tenderness (Left side) Extremity Exam: normal inspection Neurologic Exam: alert, oriented x 3, cooperative Skin Exam: normal color SpO2 Interpretation: normal SpO2: 95 O2 Delivery: Room Air Ordered Tests: Active Orders 24 hr Category Date Time Status IV Insertion STAT Care 10/03/24 16:51 Active NPO (ED) STAT Care 10/03/24 16:51 Active ABDOMEN AND PELVIS W/0 CONTRAS [CT] Stat Exams 10/03/24 16:51 Taken CBC W DIFF Stat Lab 10/03/24 16:51 Completed CMP Stat Lab 10/03/24 16:51 Completed CULTURE,URINE Stat Lab 10/03/24 19:20 Received LIPASE Stat Lab 10/03/24 16:51 Completed POCT GLUCOSE Stat Lab 10/03/24 17:06 Completed UA W/RFX UR CULTURE Stat Lab 10/03/24 19:20 Completed Medication Summary Generic Name Dose Route Start Last Admin Trade Name Freq PRN Reason Stop Dose Admin Ceftriaxone Sodium 2 gm in 100 mls @ 200 mls/hr 10/03/24 20:32 10/03/24 20:35 Rocephin 2 Gm/100 Ml Nacl IV 10/03/24 21:01 200 mls/hr STAT ONE 200 mls/hr Administration Sodium Chloride 1,000 mls @ 125 mls/hr 10/03/24 21:00 Sodium Chloride 0.9% 1000 Ml IV 11/02/24 20:59 .Q8H NOHEMY Discontinued Medications Generic Name Dose Route Start Last Admin Trade Name Freq PRN Reason Stop Dose Admin Ceftriaxone Sodium Confirm 10/03/24 20:35 Rocephin 2 Gm/100 Ml Nacl Administered 10/03/24 20:36 Dose 2 gm in 100 mls @ ud IV .STK-MED ONE Morphine Sulfate 4 mg 10/03/24 16:51 10/03/24 17:03 Morphine Sulfate 4 Mg/Ml Injection IV 10/03/24 16:52 4 mg STAT ONE Administration Morphine Sulfate Confirm 10/03/24 17:00 Morphine Sulfate 4 Mg/Ml Injection Administered 10/03/24 17:01 Dose 4 mg .ROUTE .STK-MED ONE Ondansetron HCl 4 mg 10/03/24 16:51 10/03/24 17:03 Ondansetron Hcl 4 Mg/2 Ml Vial IV 10/03/24 16:52 4 mg STAT ONE Administration Ondansetron HCl Confirm 10/03/24 17:00 Ondansetron Hcl 4 Mg/2 Ml Vial Administered 10/03/24 17:01 Dose 4 mg .ROUTE .STK-MED ONE Lab/Rad Data: Laboratory Result Diagrams 10/03/24 16:51 10/03/24 16:51 Laboratory Results 10/03/24 10/03/24 10/03/24 Range/Units 19:20 17:06 16:51 WBC (4.23-9.07) x10^3/uL RBC (4.63-6.08) x10^6/uL Hgb (13.7-17.5) g/dL Hct (40.1-51.0) % MCV (79.0-92.2) fL MCH (25.7-32.2) pg MCHC (32.3-36.5) g/dL RDW (11.6-14.4) % Plt Count (163-337) x10^3/uL MPV (9.4-12.4) fL Gran % (34.0-67.9) % Immature Gran % (Auto) (0.001-0.429) % Nucleat RBC Rel Count (0.00-0.2) % Eos # (Auto) (0.04-0.54) x10^3/uL Immature Gran # (Auto) (0.001-0.031) x10^3u/L Absolute Lymphs (auto) (1.32-3.57) x10^3/uL Absolute Monos (auto) (0.30-0.82) x10^3/uL Absolute Nucleated RBC (0.00-0.012) x10^3u/L Lymphocytes % (21.8-53.1) % Monocytes % (5.3-12.2) % Eosinophils % (0.8-7.0) % Basophils % (0.2-1.2) % Absolute Granulocytes (1.78-5.38) x10^3/uL Basophils # (0.01-0.08) x10^3/uL Sodium 137 (135-145) mmol/L Potassium 4.5 (3.5-5.1) mmol/L Chloride 105 (98-107) mmol/L Carbon Dioxide 25 (22-30) mmol/L Anion Gap 11.3 (5-15) MEQ/L BUN 23 H (9-20) mg/dL Creatinine 1.91 H (0.66-1.25) mg/dL Estimated GFR 35.0 ML/MIN Glucose 104 (74-106) mg/dL POC Glucometer 98 (74 to 106) mg/dL Calcium 8.9 (8.4-10.2) mg/dL Total Bilirubin 1.30 (0.2-1.3) mg/dL AST 30 (17-59) U/L ALT 20 (0-50) U/L Alkaline Phosphatase 72 (38-126) U/L Serum Total Protein 6.7 (6.3-8.2) g/dL Albumin 3.9 (3.5-5.0) g/dL Lipase 11 L (23-300) U/L Urine Color Dark Yellow (Yellow) Urine Appearance Cloudy A (Clear) Urine pH 5.0 (4.6-8.0) Ur Specific [place] 1.025 (1.005-1.030) Urine Protein 30 (Negative) Urine Glucose (UA) >=1000 A (Negative) mg/dL Urine Ketones Trace A (Negative) Urine Blood Moderate A (Negative) Urine Nitrite Positive A (Negative) Urine Bilirubin Negative (Negative) Urine Urobilinogen 1.0 A (0.2) mg/dL Ur Leukocyte Esterase Moderate A (Negative) U Hyaline Cast (Auto) 3-5 A (0-2) /LPF Urine Microscopic RBC 21-50 A (0-5) /HPF Urine Microscopic WBC >100 A (0-5) /HPF Ur Epithelial Cells Rare (None Seen) /HPF Urine Bacteria Many A (None Seen) /HPF Urine Yeast (Budding) Rare A (None Seen) /HPF Urine Culture Reflexed YES (NO) Slides for Path Review 10/03/24 Range/Units 16:51 WBC 16.3 H (4.23-9.07) x10^3/uL RBC 5.26 (4.63-6.08) x10^6/uL Hgb 14.2 (13.7-17.5) g/dL Hct 43.7 (40.1-51.0) % MCV 83.1 (79.0-92.2) fL MCH 27.0 (25.7-32.2) pg MCHC 32.5 (32.3-36.5) g/dL RDW 16.6 H (11.6-14.4) % Plt Count 226 (163-337) x10^3/uL MPV 10.7 (9.4-12.4) fL Gran % 88.6 H (34.0-67.9) % Immature Gran % (Auto) 0.6 H (0.001-0.429) % Nucleat RBC Rel Count 0.0 (0.00-0.2) % Eos # (Auto) 0.03 L (0.04-0.54) x10^3/uL Immature Gran # (Auto) 0.10 H (0.001-0.031) x10^3u/L Absolute Lymphs (auto) 0.59 L (1.32-3.57) x10^3/uL Absolute Monos (auto) 1.06 H (0.30-0.82) x10^3/uL Absolute Nucleated RBC 0.00 (0.00-0.012) x10^3u/L Lymphocytes % 3.6 L (21.8-53.1) % Monocytes % 6.5 (5.3-12.2) % Eosinophils % 0.2 L (0.8-7.0) % Basophils % 0.5 (0.2-1.2) % Absolute Granulocytes 14.48 H (1.78-5.38) x10^3/uL Basophils # 0.08 (0.01-0.08) x10^3/uL Sodium (135-145) mmol/L Potassium (3.5-5.1) mmol/L Chloride (98-107) mmol/L Carbon Dioxide (22-30) mmol/L Anion Gap (5-15) MEQ/L BUN (9-20) mg/dL Creatinine (0.66-1.25) mg/dL Estimated GFR ML/MIN Glucose (74-106) mg/dL POC Glucometer (74 to 106) mg/dL Calcium (8.4-10.2) mg/dL Total Bilirubin (0.2-1.3) mg/dL AST (17-59) U/L ALT (0-50) U/L Alkaline Phosphatase (38-126) U/L Serum Total Protein (6.3-8.2) g/dL Albumin (3.5-5.0) g/dL Lipase (23-300) U/L Urine Color (Yellow) Urine Appearance (Clear) Urine pH (4.6-8.0) Ur Specific [place] (1.005-1.030) Urine Protein (Negative) Urine Glucose (UA) (Negative) mg/dL Urine Ketones (Negative) Urine Blood (Negative) Urine Nitrite (Negative) Urine Bilirubin (Negative) Urine Urobilinogen (0.2) mg/dL Ur Leukocyte Esterase (Negative) U Hyaline Cast (Auto) (0-2) /LPF Urine Microscopic RBC (0-5) /HPF Urine Microscopic WBC (0-5) /HPF Ur Epithelial Cells (None Seen) /HPF Urine Bacteria (None Seen) /HPF Urine Yeast (Budding) (None Seen) /HPF Urine Culture Reflexed (NO) Slides for Path Review YES - Progress Progress: improved Progress Note: 10/03/24 20:58 79 years old with history of CABG, A-fib on Eliquis, recent left ureteral stenting is evaluated in the ER for fall with left flank/abdominal wall tenderness. Patient has no chest pain or difficulty breathing, no ribs tenderness. He is given symptomatic treatment for pain, reevaluation feeling better but pain is not completely resolved. Workup showed white count of 16, chemistries with a creatinine of 1.9 with a baseline around 1.2 and also has positive nitrites in the urine. He is given a dose of Rocephin. Started on gentle hydration. CT abdomen pelvis without contrast showed stent well in place with some hydronephrosis and edema, no other acute intra-abdominal pelvic findings per preliminary report, official report is pending. With patient's worsening renal function and his stenting with UTI I believe patient needs IV antibiotics and fluids. Discussed with Dr. Taylor, reviewed history, workup and agreed with admission. I have shared the results of workup with patient and family and plan of adm ission which they understand and agree. Discussed with Dr.: Other () Counseled pt/family regarding: lab results, diagnosis, need for follow-up, rad results Medical Desision Making - Independent Historian Additional History obtained from: Spouse - Discussion of managment Care discussed with:: hospitalist Reviewed:: Test results Agreed on:: Treatment plan, decision to admit Will see patient: in hospital - Diagnostic Testing Diagnostic test were ordered, analyzed, and reviewed by me: Yes Radiological Interpretation: Reviewed by me, Teleradiologist Report - Risk of complications The pt has a mod risk of morbidity or mortality based on: Need for prescription drug management The pt has a high risk of morbidity or mortality based on: Decision regarding hospitilization or escalation of hosp level of care - Departure Departure Disposition: Observation Clinical Impression: Acute renal failure (ARF), Acute UTI (urinary tract infection), Fall, Abdominal wall contusion Condition: Stable Critical Care Time: No Referrals: BERNADINE HUGO MD [Primary Care Provider] - Follow up/PCP as directed
[2024-10-03] MEDS ORDERED: MORPHINE SULFATE 4 MG INJ ONE ×2 (17:00→21:00)
[2024-10-03] MEDS ORDERED: Zofran 4 MG/2 ML VIAL ONE (17:00)
[2024-10-03] MEDS: MORPHINE SULFATE 4 MG INJ IV ONE ×2 (17:03→21:01)
[2024-10-03] MEDS: Zofran 4 MG/2 ML VIAL IV ONE (17:03)
[2024-10-03 17:13] LABS: Absolute Neutrophil Ct (ANC) 14.48 x10^3/uL (1.78-5.38); BASOPHIL % 0.5 % (0.2-1.2); Basophil (Absolute #) 0.08 x10^3/uL (0.01-0.08); Eosinophil % 0.2 % (0.8-7.0); Eosinophil (Absolute #) 0.03 x10^3/uL (0.04-0.54); Hematocrit 43.7 % (40.1-51.0); Hemoglobin 14.2 g/dL (13.7-17.5); IMMATURE GRAN % 0.6 % (0.001-0.429); Lymphocyte (Absolute #) 0.59 x10^3/uL (1.32-3.57); Lymphocytes % 3.6 % (21.8-53.1); Mean Cell Volume 83.1 fL (79.0-92.2); Mean Corpuscular Hgb Concent. 32.5 g/dL (32.3-36.5); Mean Platelet Volume 10.7 fL (9.4-12.4); Monocyte (Absolute #) 1.06 x10^3/uL (0.30-0.82); Monocytes % 6.5 % (5.3-12.2); Neutrophil % 88.6 % (34.0-67.9); Platelet Count 226 x10^3/uL (163-337); Red Blood Count 5.26 x10^6/uL (4.63-6.08); Red Cell Distribution Width 16.6 % (11.6-14.4); White Blood Count 16.3 x10^3/uL (4.23-9.07)
[2024-10-03 17:33] LABS: ALBUMIN 3.9 g/dL (3.5-5.0); ANION GAP 11.3 MEQ/L (5-15); BILIRUBIN,TOTAL 1.3 mg/dL (0.2-1.3); Calcium 8.9 mg/dL (8.4-10.2); Creatinine 1 1.91 mg/dL (0.66-1.25); Potassium 4.5 mmol/L (3.5-5.1); Total Protein 6.7 g/dL (6.3-8.2)
[2024-10-03 20:06] LABS: Slide Review 1 YES
[2024-10-03 20:16] LABS: Appearance Cloudy (Clear); Bacteria Many /HPF (None Seen); Bilirubin Negative (Negative); Blood Moderate (Negative); Epithelial Cells Rare /HPF (None Seen); Glucose, Urine >=1000 mg/dL (Negative); Ketones Trace (Negative); Leukocyte Esterase Moderate (Negative); Nitrite Positive (Negative); Protein,Urine Dip 30 (Negative); RBC 21-50 /HPF (0-5); Specific Gravity 1.025 (1.005-1.030); WBC >100 /HPF (0-5)
[2024-10-03 20:24] LABS: Budding Yeast Rare /HPF (None Seen)
[2024-10-03] MEDS ORDERED: ROCEPHIN 2 GM/100 ML NACL 2 GM/100 ML IVPB IV ONE (20:35)
[2024-10-03] MEDS: ROCEPHIN 2 GM/100 ML NACL 2 GM/100 ML IVPB IV ONE (20:35)
[2024-10-03] MEDS ORDERED: Sodium Chloride 0.9% 1000 ML 1,000 ML ONE (21:00)
[2024-10-03] MEDS: Sodium Chloride 0.9% 1000 ML 1,000 ML IV SCH (21:02)
--- NOTE | 2024-10-03 23:14 | PCM.HP ---
History of Present Illness - Chief Complaint Chief Complaint: Came to ER after fall at home Date: 10/03/24 History of Present Illness: is a 79 year old male 79 years old male with PMH of atrial fibrillation on Eliquis, coronary artery disease with CABG, hypertension, hyperlipidemia, kidney stones status post ureteral stent placement almost a week ago at [facility] presented in the ER after he was trying to get off of the toilet and the side rail broke, hit his left flank against the Toilet,Denied hitting his head though,C/o pain in left flank. He Took [place] leftover from previous kidney stone and feeling better but pain is back and has no more pain medication. He did c/o hematuria which is there since stent placement. he denied Nausea, vomiting, diarrhea. no chest pain, cough congestion SOB noted . he told me his made him to come to ER for evaluation.In the ER his vital signs were as follows blood pressure was 09/30/1973 pulse was 9357 and saturating 93% on room air as well as blood workup within the cell count 16.3 hemoglobin 14.2 platelets 227. Sodium 137 potassium 4.5 chloride 105 bicarb 25 BUN 23 creatinine 1.91. Urine was positive for blood nitrite and leukocyte esterase. WBCs were too many sent for culture received antibiotic and admitted for UTI/PHILOMENA. - Review of Systems All Other Systems: Reviewed and Negative Medications & Allergies Home Medications: Home Medication List Amlodipine Besylate 5 mg [Norvasc 5 mg] 10 mg PO DAILY 08/29/22 [History Confirmed 09/20/24] Aspirin EC 81 mg [Ecotrin 81 mg] 81 mg PO DAILY 08/29/22 [History Confirmed 09/20/24] Atorvastatin Calcium 40 mg PO DAILY 08/29/22 [History Confirmed 09/20/24] Duloxetine HCl 30 mg [Cymbalta 30 MG Capsule] 60 mg PO DAILY 08/29/22 [History Confirmed 09/20/24] Glipizide 10 mg [Glucotrol 10 MG] 10 mg PO DAILY 08/29/22 [History Confirmed 09/20/24] Hydrochlorothiazide 25 mg [hydroDIURIL 25 MG] 25 mg PO DAILY 08/29/22 [History Confirmed 09/20/24] Losartan Potassium 100 mg PO DAILY 08/29/22 [History Confirmed 09/20/24] Metoprolol Succinate 50 mg [Toprol Xl 50 MG] 50 mg PO DAILY 08/29/22 [History Confirmed 09/20/24] Multivitamin 1 tab PO DAILY 08/29/22 [History Confirmed 09/20/24] Hydrocodone/Acetaminophen [Hydrocodone-Acetamin 7.5-325] 1 each PO Q6H PRN 5 Days #20 tablet MDD 4 tabs 09/15/24 [Rx Confirmed 09/20/24] Tamsulosin HCl 0.4 mg [Flomax 0.4 MG] 0.4 mg PO DAILY 14 Days #14 cap 09/15/24 [Rx Confirmed 09/20/24] Ciprofloxacin [Cipro 500 MG] 500 mg PO BID #14 tablet 09/20/24 [Rx] Allergies/Adverse Reactions: Allergies Allergy/AdvReac Type Severity Reaction Status Date / Time Sulfa (Sulfonamide Allergy Hives Verified 10/03/24 16:37 Antibiotics) NSAIDS (Non-Steroidal AdvReac Verified 10/03/24 16:37 Anti-Inflamma - Past Medical History Past Medical History: Yes Neurological History: No Pertinent History ENT History: No Pertinent History Cardiac History: Hypertension, Myocardial Infarction (CT) Respiratory History: Sleep Apnea Endocrine Medical History: Diabetes Type II Musculoskelatal History: No Pertinent History GI Medical History: Polyps History: No Pertinent History Pyscho-Social History: Depression Male Reproductive Disorders: Prostate Cancer Comment: rectal fissure - Past Surgical History Past Surgical History: Yes Neuro Surgical History: No Pertinent History Cardiac History: Cardiac Catheterization, Cardiac Stent Respiratory Surgery: No Pertinent History GI Surgical History: No Pertinent History Genitourinary Surgical Hx: No Pertinent History Musculskeletal Surgical Hx: No Pertinent History Male Surgical History: Prostate Surgery Other Surgical History: baractic surgery 2015, protate cancer, prostatectomy, penile pump implant Significant Family History: no pertinent family hx - Social History Smoking Status: Former smoker Exposure to second hand smoke: No Alcohol: None Drug Use: none - Social Determinants of Health Will the patient participate in the screening: Yes Do you worry about a steady place to live?: No Do you have any problems with any of the following?: No known problems In the past 12 months,have you had to go without utilities?: No Have you or anyone in your house had to go without enough: No Transportation Issues: No Has anyone in your support network made you feel unsafe?: No - Physical Exam Vital Signs: Vital Signs - 24 hr Temp Pulse Resp BP BP Pulse Ox 10/03/24 22:00 59 L 123/66 93 L 10/03/24 21:31 60 119/64 93 L 10/03/24 21:01 95 10/03/24 21:00 57 L 120/73 93 L 10/03/24 20:00 60 20 110/60 92 L 10/03/24 19:30 101/58 91 L 10/03/24 19:01 61 95/57 94 L 10/03/24 18:31 62 119/69 93 L 10/03/24 18:00 62 103/56 95 10/03/24 17:04 65 18 116/65 89 L 10/03/24 17:00 116/67 93 L 10/03/24 16:37 96.8 F 67 20 145/82 95 10/03/24 16:36 145/82 94 L Additional Findings: 10/03/24 23:12 HEENT Old aged, Obese built in no distress NECK Supple,no thyromegaly, CVS S1+S2 + 0, no murmers RESP Bilateral equal air entry without Crepts/Wheezes heard GIT Soft non tender,non distended Skin, No rah, no Bruises LEGS No Edema PSYCH Normal,mood, judgement and insight NEURO AOX3, no focal deficit 10/04/24 01:02 Results - Labs Lab/Micro Results: Lab Results-Last 24 Hours 10/03/24 10/03/24 10/03/24 Range/Units 16:51 16:51 17:06 WBC 16.3 H (4.23-9.07) x10^3/uL RBC 5.26 (4.63-6.08) x10^6/uL Hgb 14.2 (13.7-17.5) g/dL Hct 43.7 (40.1-51.0) % MCV 83.1 (79.0-92.2) fL MCH 27.0 (25.7-32.2) pg MCHC 32.5 (32.3-36.5) g/dL RDW 16.6 H (11.6-14.4) % Plt Count 226 (163-337) x10^3/uL MPV 10.7 (9.4-12.4) fL Gran % 88.6 H (34.0-67.9) % Immature Gran % (Auto) 0.6 H (0.001-0.429) % Nucleat RBC Rel Count 0.0 (0.00-0.2) % Eos # (Auto) 0.03 L (0.04-0.54) x10^3/uL Immature Gran # (Auto) 0.10 H (0.001-0.031) x10^3u/L Absolute Lymphs (auto) 0.59 L (1.32-3.57) x10^3/uL Absolute Monos (auto) 1.06 H (0.30-0.82) x10^3/uL Absolute Nucleated RBC 0.00 (0.00-0.012) x10^3u/L Lymphocytes % 3.6 L (21.8-53.1) % Monocytes % 6.5 (5.3-12.2) % Eosinophils % 0.2 L (0.8-7.0) % Basophils % 0.5 (0.2-1.2) % Absolute Granulocytes 14.48 H (1.78-5.38) x10^3/uL Basophils # 0.08 (0.01-0.08) x10^3/uL Sodium 137 (135-145) mmol/L Potassium 4.5 (3.5-5.1) mmol/L Chloride 105 (98-107) mmol/L Carbon Dioxide 25 (22-30) mmol/L Anion Gap 11.3 (5-15) MEQ/L BUN 23 H (9-20) mg/dL Creatinine 1.91 H (0.66-1.25) mg/dL Estimated GFR 35.0 ML/MIN Glucose 104 (74-106) mg/dL POC Glucometer 98 (74 to 106) mg/dL Calcium 8.9 (8.4-10.2) mg/dL Total Bilirubin 1.30 (0.2-1.3) mg/dL AST 30 (17-59) U/L ALT 20 (0-50) U/L Alkaline Phosphatase 72 (38-126) U/L Serum Total Protein 6.7 (6.3-8.2) g/dL Albumin 3.9 (3.5-5.0) g/dL Lipase 11 L (23-300) U/L Urine Color (Yellow) Urine Appearance (Clear) Urine pH (4.6-8.0) Ur Specific [place] (1.005-1.030) Urine Protein (Negative) Urine Glucose (UA) (Negative) mg/dL Urine Ketones (Negative) Urine Blood (Negative) Urine Nitrite (Negative) Urine Bilirubin (Negative) Urine Urobilinogen (0.2) mg/dL Ur Leukocyte Esterase (Negative) U Hyaline Cast (Auto) (0-2) /LPF Urine Microscopic RBC (0-5) /HPF Urine Microscopic WBC (0-5) /HPF Ur Epithelial Cells (None Seen) /HPF Urine Bacteria (None Seen) /HPF Urine Yeast (Budding) (None Seen) /HPF Urine Culture Reflexed (NO) Slides for Path Review YES 10/03/24 Range/Units 19:20 WBC (4.23-9.07) x10^3/uL RBC (4.63-6.08) x10^6/uL Hgb (13.7-17.5) g/dL Hct (40.1-51.0) % MCV (79.0-92.2) fL MCH (25.7-32.2) pg MCHC (32.3-36.5) g/dL RDW (11.6-14.4) % Plt Count (163-337) x10^3/uL MPV (9.4-12.4) fL Gran % (34.0-67.9) % Immature Gran % (Auto) (0.001-0.429) % Nucleat RBC Rel Count (0.00-0.2) % Eos # (Auto) (0.04-0.54) x10^3/uL Immature Gran # (Auto) (0.001-0.031) x10^3u/L Absolute Lymphs (auto) (1.32-3.57) x10^3/uL Absolute Monos (auto) (0.30-0.82) x10^3/uL Absolute Nucleated RBC (0.00-0.012) x10^3u/L Lymphocytes % (21.8-53.1) % Monocytes % (5.3-12.2) % Eosinophils % (0.8-7.0) % Basophils % (0.2-1.2) % Absolute Granulocytes (1.78-5.38) x10^3/uL Basophils # (0.01-0.08) x10^3/uL Sodium (135-145) mmol/L Potassium (3.5-5.1) mmol/L Chloride (98-107) mmol/L Carbon Dioxide (22-30) mmol/L Anion Gap (5-15) MEQ/L BUN (9-20) mg/dL Creatinine (0.66-1.25) mg/dL Estimated GFR ML/MIN Glucose (74-106) mg/dL POC Glucometer (74 to 106) mg/dL Calcium (8.4-10.2) mg/dL Total Bilirubin (0.2-1.3) mg/dL AST (17-59) U/L ALT (0-50) U/L Alkaline Phosphatase (38-126) U/L Serum Total Protein (6.3-8.2) g/dL Albumin (3.5-5.0) g/dL Lipase (23-300) U/L Urine Color Dark Yellow (Yellow) Urine Appearance Cloudy A (Clear) Urine pH 5.0 (4.6-8.0) Ur Specific [place] 1.025 (1.005-1.030) Urine Protein 30 (Negative) Urine Glucose (UA) >=1000 A (Negative) mg/dL Urine Ketones Trace A (Negative) Urine Blood Moderate A (Negative) Urine Nitrite Positive A (Negative) Urine Bilirubin Negative (Negative) Urine Urobilinogen 1.0 A (0.2) mg/dL Ur Leukocyte Esterase Moderate A (Negative) U Hyaline Cast (Auto) 3-5 A (0-2) /LPF Urine Microscopic RBC 21-50 A (0-5) /HPF Urine Microscopic WBC >100 A (0-5) /HPF Ur Epithelial Cells Rare (None Seen) /HPF Urine Bacteria Many A (None Seen) /HPF Urine Yeast (Budding) Rare A (None Seen) /HPF Urine Culture Reflexed YES (NO) Slides for Path Review - Radiology Impressions Radiology Exams & Impressions: Radiology Procedures Category Date Time Status ABDOMEN AND PELVIS W/0 CONTRAS [CT] Stat Exams 10/03/24 16:51 Taken Assessment/Plan (1) Acute UTI (urinary tract infection) Current Visit: Yes Status: Acute Code(s): N39.0 - URINARY TRACT INFECTION, SITE NOT SPECIFIED (2) Acute renal failure (ARF) Current Visit: Yes Status: Acute (3) Fall Current Visit: Yes Status: Acute Code(s): W19.XXXA - UNSPECIFIED FALL, INITIAL ENCOUNTER (4) Left flank pain Current Visit: No Status: Acute Code(s): R10.9 - UNSPECIFIED ABDOMINAL PAIN Telemedicine Encounter - Telemedicine Encounter Telemedicine Encounter: The entirety of this encounter was performed via TelemedicineThis visit was performed using real-time audio and video connection between my location and thepatients locationwith the assistance of a surrogateat the patients location. Written or verbal consent was obtained from the patient/guardian to perform this visit using[employer] technology. Any patient questions regarding the telemedicine interaction were answered. Sepsis Present upon admi Pt was SIRS +ve , source UTI C/w AB keep f/u cultures Acute kidney injury Baseline creatinine 1.2 Creatinine hypertension 1.9 Continue IV fluids Avoiding nephrotoxins Acute Pyelonephritis Urine is positive for blood nitrite and leukocyte esterase, Continue following up culture Continue ceftriaxone PLs f/u Ct abd/ pelvis report in am History of renal stones Got admitted at [facility] last week status post stent placement Follows with urology regularly Status post fall Denied hitting his head Complaining of left flank pain Will get Abd pelvic CT, report awaited Diabetes mellitus type 2 C/w SSI Keep holding glipizide due to PHILOMENA Coronary artery disease Status post CABG on 05/07/2025 denied having any chest pain or shortness of breath Will resume home meds including Asp/Statins, holding BB for now due to soft BP Hypertension Blood pressure towards softer side Keep holding all home Bp meds, pls resume BB in am H/o prostate cancer S/p surgery Currently in remission Obesity/KIESHA on CAPAP at home Hyperlipidemia Continue home meds DVT prophylaxis SCD/heparin subcu CODE STATUS full Discharge plan pending clinical stability. I have reviewed patient lab orders and imaging in detail question and concerns were addressed
[2024-10-04] MEDS: NORCO 5/325 MG PO PRN (02:23)
--- NOTE | 2024-10-04 05:15 | PCM.NOTE ---
Date and Time: 10/04/24 0509 Subjective Assessment: is a 79 year old male 79 years old male with PMH of atrial fibrillation on Eliquis, coronary artery disease with CABG, hypertension, hyperlipidemia, kidney stones status post ureteral stent placement almost a week ago at [facility] presented in the ER 10/03/24 after he was trying to get off of the to ilet and the side rail broke, hit his left flank against the toilet. No head trauma. C/o pain in left flank. [place] relieved pain. Has c/o hematuria which is there since stent placement. he denied Nausea, vomiting, diarrhea. no chest pain, cough congestion SOB noted .CT abdomen and pelvis demonstrates . Status post left ureteral stent catheter placement. Continued hydronephrotic and ed ematous appearing left kidney. New air bubbles in left kidney and urinary bladder either iatrogenic versus gas-forming infection. In the ER his vital signs stable. Lab findings remarkable for leukocytosis with WBC at 16.3 , BUN 23 creatinine 1.91. Urine was positive for blood nitrite and leukocyte esterase. Admitted for UTI/PHILOMENA. Will start Zosyn. 10/04/24: Met with patient and spouse bedside. Patient endorsing improvement in flank pain. Reports that he was concerned when he fell that the fall may have disrupted his stent placement. He does still have some tenderness to the left abdomen from the fall. He denies urinary retention but states he has urinary hesitancy at baseline. Creat went up overnight despite fluids. Will check PVR with bladder scan for retention. Antibiotics changed to Zosyn. - Review of Systems Constitutional: No Symptoms Eyes: No Symptoms Ears, Nose, & Throat: No Symptoms Respiratory: No Symptoms Abdominal/Gastrointestinal: Abdominal Pain (left side- from fall) Genitourinary Symptoms: Hesitancy Musculoskeletal: No Symptoms Skin: No Symptoms Neurological: No Symptoms Psychological: No Symptoms Endocrine: No Symptoms Hematologic/Lymphatic: No Symptoms Immunological/Allergic: No Symptoms Objective Exam General Appearance: no apparent distress Neurologic Exam: alert, oriented x 3, cooperative Skin Exam: normal color Eye Exam: PERRL Ears, Nose, Throat Exam: normal ENT inspection Neck Exam: normal inspection Respiratory Exam: normal breath sounds, lungs clear Cardiovascular Exam: regular rate/rhythm, normal heart sounds Gastrointestinal/Abdomen Exam: soft, normal bowel sounds Extremity Exam: normal inspection Back Exam: normal inspection Male Genitalia Exam: deferred Rectal Exam: deferred Objective Data Vital Signs: Vital Signs - 24 hr Temp Pulse Resp BP BP Pulse Ox 10/04/24 03:44 97.2 F 64 18 118/57 94 L 10/04/24 02:51 95 10/04/24 02:46 66 18 95 10/04/24 01:28 97.8 F 60 19 150/65 94 L 10/04/24 01:01 94 L 10/04/24 00:01 22 122/64 96 10/03/24 23:31 119/69 96 10/03/24 23:01 138/120 10/03/24 22:30 129/72 10/03/24 22:00 59 L 123/66 93 L 10/03/24 21:31 60 119/64 93 L 10/03/24 21:01 95 10/03/24 21:00 57 L 120/73 93 L 10/03/24 20:00 60 20 110/60 92 L 10/03/24 19:30 101/58 91 L 10/03/24 19:01 61 95/57 94 L 10/03/24 18:31 62 119/69 93 L 10/03/24 18:00 62 103/56 95 10/03/24 17:04 65 18 116/65 89 L 10/03/24 17:00 116/67 93 L 10/03/24 16:37 96.8 F 67 20 145/82 95 10/03/24 16:36 145/82 94 L Pain Assessment - Last Documented Pain Intensity 7 Pain Scale Used 0-10 Pain Scale Intake and Output: Intake & Output 10/01/24 10/02/24 10/03/24 10/04/24 11:59 11:59 11:59 11:59 Intake Total 704 Output Total 50 Balance 654 Weight 141.4 kg Lab Results: Lab Results-Last 24 Hours 10/03/24 10/03/24 10/03/24 Range/Units 16:51 16:51 17:06 WBC 16.3 H (4.23-9.07) x10^3/uL RBC 5.26 (4.63-6.08) x10^6/uL Hgb 14.2 (13.7-17.5) g/dL Hct 43.7 (40.1-51.0) % MCV 83.1 (79.0-92.2) fL MCH 27.0 (25.7-32.2) pg MCHC 32.5 (32.3-36.5) g/dL RDW 16.6 H (11.6-14.4) % Plt Count 226 (163-337) x10^3/uL MPV 10.7 (9.4-12.4) fL Gran % 88.6 H (34.0-67.9) % Immature Gran % (Auto) 0.6 H (0.001-0.429) % Nucleat RBC Rel Count 0.0 (0.00-0.2) % Eos # (Auto) 0.03 L (0.04-0.54) x10^3/uL Immature Gran # (Auto) 0.10 H (0.001-0.031) x10^3u/L Absolute Lymphs (auto) 0.59 L (1.32-3.57) x10^3/uL Absolute Monos (auto) 1.06 H (0.30-0.82) x10^3/uL Absolute Nucleated RBC 0.00 (0.00-0.012) x10^3u/L Lymphocytes % 3.6 L (21.8-53.1) % Monocytes % 6.5 (5.3-12.2) % Eosinophils % 0.2 L (0.8-7.0) % Basophils % 0.5 (0.2-1.2) % Absolute Granulocytes 14.48 H (1.78-5.38) x10^3/uL Basophils # 0.08 (0.01-0.08) x10^3/uL Sodium 137 (135-145) mmol/L Potassium 4.5 (3.5-5.1) mmol/L Chloride 105 (98-107) mmol/L Carbon Dioxide 25 (22-30) mmol/L Anion Gap 11.3 (5-15) MEQ/L BUN 23 H (9-20) mg/dL Creatinine 1.91 H (0.66-1.25) mg/dL Estimated GFR 35.0 ML/MIN Glucose 104 (74-106) mg/dL POC Glucometer 98 (74 to 106) mg/dL Calcium 8.9 (8.4-10.2) mg/dL Total Bilirubin 1.30 (0.2-1.3) mg/dL AST 30 (17-59) U/L ALT 20 (0-50) U/L Alkaline Phosphatase 72 (38-126) U/L Serum Total Protein 6.7 (6.3-8.2) g/dL Albumin 3.9 (3.5-5.0) g/dL Lipase 11 L (23-300) U/L Urine Color (Yellow) Urine Appearance (Clear) Urine pH (4.6-8.0) Ur Specific [place] (1.005-1.030) Urine Protein (Negative) Urine Glucose (UA) (Negative) mg/dL Urine Ketones (Negative) Urine Blood (Negative) Urine Nitrite (Negative) Urine Bilirubin (Negative) Urine Urobilinogen (0.2) mg/dL Ur Leukocyte Esterase (Negative) U Hyaline Cast (Auto) (0-2) /LPF Urine Microscopic RBC (0-5) /HPF Urine Microscopic WBC (0-5) /HPF Ur Epithelial Cells (None Seen) /HPF Urine Bacteria (None Seen) /HPF Urine Yeast (Budding) (None Seen) /HPF Urine Culture Reflexed (NO) Slides for Path Review YES 10/03/24 Range/Units 19:20 WBC (4.23-9.07) x10^3/uL RBC (4.63-6.08) x10^6/uL Hgb (13.7-17.5) g/dL Hct (40.1-51.0) % MCV (79.0-92.2) fL MCH (25.7-32.2) pg MCHC (32.3-36.5) g/dL RDW (11.6-14.4) % Plt Count (163-337) x10^3/uL MPV (9.4-12.4) fL Gran % (34.0-67.9) % Immature Gran % (Auto) (0.001-0.429) % Nucleat RBC Rel Count (0.00-0.2) % Eos # (Auto) (0.04-0.54) x10^3/uL Immature Gran # (Auto) (0.001-0.031) x10^3u/L Absolute Lymphs (auto) (1.32-3.57) x10^3/uL Absolute Monos (auto) (0.30-0.82) x10^3/uL Absolute Nucleated RBC (0.00-0.012) x10^3u/L Lymphocytes % (21.8-53.1) % Monocytes % (5.3-12.2) % Eosinophils % (0.8-7.0) % Basophils % (0.2-1.2) % Absolute Granulocytes (1.78-5.38) x10^3/uL Basophils # (0.01-0.08) x10^3/uL Sodium (135-145) mmol/L Potassium (3.5-5.1) mmol/L Chloride (98-107) mmol/L Carbon Dioxide (22-30) mmol/L Anion Gap (5-15) MEQ/L BUN (9-20) mg/dL Creatinine (0.66-1.25) mg/dL Estimated GFR ML/MIN Glucose (74-106) mg/dL POC Glucometer (74 to 106) mg/dL Calcium (8.4-10.2) mg/dL Total Bilirubin (0.2-1.3) mg/dL AST (17-59) U/L ALT (0-50) U/L Alkaline Phosphatase (38-126) U/L Serum Total Protein (6.3-8.2) g/dL Albumin (3.5-5.0) g/dL Lipase (23-300) U/L Urine Color Dark Yellow (Yellow) Urine Appearance Cloudy A (Clear) Urine pH 5.0 (4.6-8.0) Ur Specific [place] 1.025 (1.005-1.030) Urine Protein 30 (Negative) Urine Glucose (UA) >=1000 A (Negative) mg/dL Urine Ketones Trace A (Negative) Urine Blood Moderate A (Negative) Urine Nitrite Positive A (Negative) Urine Bilirubin Negative (Negative) Urine Urobilinogen 1.0 A (0.2) mg/dL Ur Leukocyte Esterase Moderate A (Negative) U Hyaline Cast (Auto) 3-5 A (0-2) /LPF Urine Microscopic RBC 21-50 A (0-5) /HPF Urine Microscopic WBC >100 A (0-5) /HPF Ur Epithelial Cells Rare (None Seen) /HPF Urine Bacteria Many A (None Seen) /HPF Urine Yeast (Budding) Rare A (None Seen) /HPF Urine Culture Reflexed YES (NO) Slides for Path Review Radiology Exams: Radiology Procedures Category Date Time Status ABDOMEN AND PELVIS W/0 CONTRAS [CT] Stat Exams 10/03/24 16:51 Taken Assessment/Plan (1) Sepsis Current Visit: Yes Status: Acute Assessment & Plan: -Met criteria with elevated HR > 90, WBC elevated, and UTI -secondary to UTI -CT abd/pelvis demonstrates status post left ureteral stent catheter placement. Continued hydronephrotic and edematous appearing left kidney. New air bubbles in left kidney and urinary bladder either iatrogenic versus gas-forming infection. -Ucult pending -continue with Zosyn - follow cultures (2) Acute UTI (urinary tract infection) Current Visit: Yes Status: Acute Assessment & Plan: -see sepsis Code(s): N39.0 - URINARY TRACT INFECTION, SITE NOT SPECIFIED (3) Acute renal failure (ARF) Current Visit: Yes Status: Acute Assessment & Plan: -Creat reviewed at 2.19 (baseline around 1.1-1.2) -Monitor renal/lytes -Avoid nephrotoxic meds -IVF (4) Fall Current Visit: Yes Status: Acute Assessment & Plan: -No head trauma -CT abdomen for left flank pain demonstrates status post left ureteral stent catheter placement. Continued hydronephrotic and edematous appearing left kidney. New air bubbles in left kidney and urinary bladder either iatrogenic versus gas-forming infection. -Pain control - pain almost resolved today Code(s): W19.XXXA - UNSPECIFIED FALL, INITIAL ENCOUNTER (5) Left flank pain Current Visit: No Status: Acute Assessment & Plan: -see fall Code(s): R10.9 - UNSPECIFIED ABDOMINAL PAIN (6) Diabetes mellitus Current Visit: Yes Status: Acute Assessment & Plan: -ADA diet -AIC -SSI Code(s): E11.9 - TYPE 2 DIABETES MELLITUS WITHOUT COMPLICATIONS (7) CAD (coronary artery disease) Current Visit: Yes Status: Acute Assessment & Plan: -Status post CABG on 05/07/2025 -No chest pain or shortness of breath - resume home meds including Asp/Statins, holding BB for now due to soft BP Code(s): I25.10 - ATHSCL HEART DISEASE OF [place] CORONARY ARTERY W/O ANG PCTRS (8) HTN (hypertension) Current Visit: Yes Status: Acute Assessment & Plan: -Blood pressure towards softer side -Keep holding all home Bp meds, pls resume BB in am Code(s): I10 - ESSENTIAL (PRIMARY) HYPERTENSION (9) History of prostate cancer Current Visit: Yes Status: Acute Assessment & Plan: -S/p surgery -Currently in remission Code(s): Z85.46 - PERSONAL HISTORY OF MALIGNANT NEOPLASM OF PROSTATE (10) Obesity (BMI 30-39.9) Current Visit: Yes Status: Acute Assessment & Plan: -Advised diet and exercise Code(s): E66.9 - OBESITY, UNSPECIFIED (11) HLD (hyperlipidemia) Current Visit: Yes Status: Acute Assessment & Plan: -continue statin DVT prophylaxis SCD/heparin subcu CODE STATUS full Discharge plan pending clinical stability Code(s): E78.5 - HYPERLIPIDEMIA, UNSPECIFIED
[2024-10-04] MEDS: Sodium Chloride 0.9% 1000 ML 1,000 ML IV SCH (05:42)
[2024-10-04 06:51] LABS: Hematocrit 43.3 % (40.1-51.0); Hemoglobin 13.7 g/dL (13.7-17.5); Mean Cell Volume 84.2 fL (79.0-92.2); Mean Corpuscular Hemoglobin 26.7 pg (25.7-32.2); Mean Corpuscular Hgb Concent. 31.6 g/dL (32.3-36.5); Mean Platelet Volume 10.6 fL (9.4-12.4); Platelet Count 177 x10^3/uL (163-337); Red Blood Count 5.14 x10^6/uL (4.63-6.08); Red Cell Distribution Width 17.2 % (11.6-14.4); White Blood Count 12.9 x10^3/uL (4.23-9.07)
[2024-10-04 07:06] LABS: ANION GAP 11.5 MEQ/L (5-15); Calcium 8.8 mg/dL (8.4-10.2); Creatinine 1 2.19 mg/dL (0.66-1.25); EST GLOMERULAR FILTRATION RATE 29.7 ML/MIN; Potassium 4.2 mmol/L (3.5-5.1)
--- NOTE | 2024-10-04 09:21 | XRAY ---
Indication: Left flank pain. Status post fall. Multiple contiguous axial images obtained through the abdomen and pelvis without contrast. Comparison: September 20, 2024 Lung bases again demonstrates dependent atelectasis. No infiltrate or effusion. Heart remains borderline enlarged. Stable small hiatal hernia. Again previous bariatric surgery. Noncontrasted stomach and bowel loops appear nonobstructed with normal appendix. Again small descending duodenal diverticulum, colonic diverticulosis without diverticulitis, distended gallbladder, small left adrenal adenoma, and prostatectomy. New left double-J ureteral stent catheter. Left kidney remains mildly hydronephrotic and edematous. New air bubbles left kidney and urinary bladder presumed iatrogenic from stent catheter placement. Gas-forming infection not completely excluded. Again a few bilateral renal micro-calculi. No free fluid/air. Remaining liver, gallbladder, pancreas, and spleen are unremarkable for noncontrast exam. Stable mild aortoiliac calcifications without AAA. Impression: 1. Status post left ureteral stent catheter placement. Continued hydronephrotic and edematous appearing left kidney. New air bubbles in left kidney and urinary bladder either iatrogenic versus gas-forming infection. 2. Chronic findings including borderline cardiomegaly, hiatal hernia, duodenal diverticulum, colonic diverticulosis, distended gallbladder, left adrenal adenoma, bilateral renal micro-calculi, and arteriosclerotic disease.
[2024-10-04] MEDS ORDERED: PIPERACILLIN/TAZOBACTAM 3.375 GM in Sodium Chloride 100ML MINI-BAG PLUS 100 ML IV SCH (12:00)
[2024-10-04] MEDS: ECOTRIN 81 MG PO SCH (12:48)
[2024-10-04] MEDS: Piperacillin/Tazobactam 2.25 GM 2.25 GM in Sodium Chloride 100ML MINI-BAG PLUS 100 ML IV SCH (12:48)
[2024-10-04] MEDS: Flomax 0.4 MG PO SCH (12:48)
[2024-10-04] MEDS: HEPARIN 5000 UNITS/0.5 ML (HIGH RISK MED) SQ SCH (12:48)
[2024-10-04] MEDS: ZOCOR 20MG PO SCH (12:48)
[2024-10-04] MEDS ORDERED: ROCEPHIN 1 GM / 100 ML NaCl 1 GM/100 ML IVPB IV SCH (22:00)
[2024-10-04] MEDS: ELIQUIS 2.5 MG TABLET PO SCH (22:25)
[2024-10-04] MEDS: ZOLOFT 50 MG TABLET PO SCH (22:25)
[2024-10-04] MEDS: Ambien 10 MG PO SCH (22:25)
--- NOTE | 2024-10-05 05:06 | PCM.NOTE ---
Date and Time: 10/05/24 5954 Subjective Assessment: is a 79 year old male 79 years old male with PMH of atrial fibrillation on Eliquis, coronary artery disease with CABG, hypertension, hyperlipidemia, kidney stones status post ureteral stent placement almost a week ago at [facility] presented in the ER 10/03/24 after he was trying to get off of the to ilet and the side rail broke, hit his left flank against the toilet. No head trauma. C/o pain in left flank. Benedict relieved pain. Has c/o hematuria which is there since stent placement. he denied Nausea, vomiting, diarrhea. no chest pain, cough congestion SOB noted .CT abdomen and pelvis demonstrates . Status post left ureteral stent catheter placement. Continued hydronephrotic and edematous appearing left kidney. New air bubbles in left kidney and urinary bladder either iatrogenic versus gas-forming infection. In the ER his vital signs stable. Lab findings remarkable for leukocytosis with WBC at 16.3 , BUN 23 creatinine 1.91. Urine was positive for blood nitrite and leukocyte esterase. Admitted for UTI/PHILOMENA. Will start Zosyn. 10/04/24: Met with patient and spouse bedside. Patient endorsing improvement in flank pain. Reports that he was concerned when he fell that the fall may have disrupted his stent placement. He does still have some tenderness to the left abdomen from the fall. He denies urinary retention but states he has urinary hesitancy at baseline. Creat went up overnight despite fluids. Will check PVR with bladder scan for retention. Antibiotics changed to Zosyn. 10/05/24: Met with patient bedside. Flank pain has now resolved. Creat level not improving despite fluids. I&O records not accurate due to incontinence. Will anchor linares. Bladder US not available. Continue Zosyn. Blood and urine cultures pending. WBC now WNL. - Review of Systems Constitutional: No Symptoms Eyes: No Symptoms Ears, Nose, & Throat: No Symptoms Respiratory: No Symptoms Cardiac: No Symptoms Abdominal/Gastrointestinal: No Symptoms Genitourinary Symptoms: Hesitancy Musculoskeletal: No Symptoms Skin: No Symptoms Neurological: No Symptoms Psychological: No Symptoms Endocrine: No Symptoms Hematologic/Lymphatic: No Symptoms Immunological/Allergic: No Symptoms Objective Exam General Appearance: no apparent distress Neurologic Exam: alert, oriented x 3, cooperative Skin Exam: normal color Eye Exam: PERRL Ears, Nose, Throat Exam: normal ENT inspection Neck Exam: normal inspection Respiratory Exam: normal breath sounds, lungs clear Cardiovascular Exam: regular rate/rhythm, normal heart sounds Gastrointestinal/Abdomen Exam: soft, normal bowel sounds Extremity Exam: normal inspection Back Exam: normal inspection Male Genitalia Exam: deferred Rectal Exam: deferred Objective Data Vital Signs: Vital Signs - 24 hr Temp Pulse Resp BP Pulse Ox 10/05/24 00:00 97.6 F 83 22 118/55 93 L 10/04/24 20:00 92 L 10/04/24 19:47 97.3 F 78 20 129/75 99 10/04/24 16:00 96.2 F 67 20 162/69 97 10/04/24 11:01 97.5 F 68 18 129/68 93 L 10/04/24 07:48 94 L 10/04/24 07:18 97 F 67 16 138/71 97 Pain Assessment - Last Documented Pain Intensity 5 Pain Scale Used 0-10 Pain Scale Intake and Output: Intake & Output 10/02/24 10/03/24 10/04/24 10/05/24 11:59 11:59 11:59 11:59 Intake Total 1084 380 Output Total 200 785 Balance 884 -405 Weight 141.4 kg Lab Results: Lab Results-Last 24 Hours 10/04/24 10/04/24 10/04/24 Range/Units 06:49 06:49 21:27 WBC 12.9 H (4.23-9.07) x10^3/uL RBC 5.14 (4.63-6.08) x10^6/uL Hgb 13.7 (13.7-17.5) g/dL Hct 43.3 (40.1-51.0) % MCV 84.2 (79.0-92.2) fL MCH 26.7 (25.7-32.2) pg MCHC 31.6 L (32.3-36.5) g/dL RDW 17.2 H (11.6-14.4) % Plt Count 177 (163-337) x10^3/uL MPV 10.6 (9.4-12.4) fL Sodium 138 (135-145) mmol/L Potassium 4.2 (3.5-5.1) mmol/L Chloride 106 (98-107) mmol/L Carbon Dioxide 25 (22-30) mmol/L Anion Gap 11.5 (5-15) MEQ/L BUN 28 H (9-20) mg/dL Creatinine 2.19 H (0.66-1.25) mg/dL Estimated GFR 29.7 ML/MIN Glucose 60 L (74-106) mg/dL POC Glucometer 103 (74 to 106) mg/dL Calcium 8.8 (8.4-10.2) mg/dL Radiology Exams: Radiology Procedures Category Date Time Status ABDOMEN AND PELVIS W/0 CONTRAS [CT] Stat Exams 10/03/24 16:51 Completed Multi-Disciplinary Progress Notes: Multi-Disciplinary Progress Notes 10/04/24 09:48 Pharmacy Note by Abhishek Reeves Zosyn dose decreased to 2.25gm per renal dosing policy. Estimated crcl is 33ml/min. Initialized on 10/04/24 09:48 - END OF NOTE Assessment/Plan (1) Sepsis Current Visit: Yes Status: Acute Assessment & Plan: -Met criteria with elevated HR > 90, WBC elevated, and UTI -secondary to UTI -CT abd/pelvis demonstrates status post left ureteral stent catheter placement. Continued hydronephrotic and edematous appearing left kidney. New air bubbles in left kidney and urinary bladder either iatrogenic versus gas-forming infection. -Ucult pending -continue with Zosyn - follow cultures 10/05: -No longer meets criteria -Ucult pending-continue zosyn -May consider transfer for urology if no improvement in creat (2) Acute UTI (urinary tract infection) Current Visit: Yes Status: Acute Assessment & Plan: -see sepsis Code(s): N39.0 - URINARY TRACT INFECTION, SITE NOT SPECIFIED (3) Acute renal failure (ARF) Current Visit: Yes Status: Acute Assessment & Plan: -Creat reviewed at 2.19 (baseline around 1.1-1.2) -Monitor renal/lytes -Avoid nephrotoxic meds -IVF 10/05: -creat reviewed and continues to uptrend now at 2.33>2.19 -continue IVF -[place] linares (4) Fall Current Visit: Yes Status: Acute Assessment & Plan: -No head trauma -CT abdomen for left flank pain demonstrates status post left ureteral stent catheter placement. Continued hydronephrotic and edematous appearing left kidney. New air bubbles in left kidney and urinary bladder either iatrogenic versus gas-forming infection. -Pain control - pain almost resolved today Code(s): W19.XXXA - UNSPECIFIED FALL, INITIAL ENCOUNTER (5) Left flank pain Current Visit: No Status: Acute Assessment & Plan: -see fall Code(s): R10.9 - UNSPECIFIED ABDOMINAL PAIN (6) Diabetes mellitus Current Visit: Yes Status: Acute Assessment & Plan: -ADA diet -AIC -SSI Code(s): E11.9 - TYPE 2 DIABETES MELLITUS WITHOUT COMPLICATIONS (7) CAD (coronary artery disease) Current Visit: Yes Status: Acute Assessment & Plan: -Status post CABG on 05/07/2025 -No chest pain or shortness of breath - resume home meds including Asp/Statins, holding BB for now due to soft BP Code(s): I25.10 - ATHSCL HEART DISEASE OF [place] CORONARY ARTERY W/O ANG PCTRS (8) HTN (hypertension) Current Visit: Yes Status: Acute Assessment & Plan: -Blood pressure towards softer side -Keep holding all home Bp meds, pls resume BB in am Code(s): I10 - ESSENTIAL (PRIMARY) HYPERTENSION (9) History of prostate cancer Current Visit: Yes Status: Acute Assessment & Plan: -S/p surgery -Currently in remission Code(s): Z85.46 - PERSONAL HISTORY OF MALIGNANT NEOPLASM OF PROSTATE (10) Obesity (BMI 30-39.9) Current Visit: Yes Status: Acute Assessment & Plan: -Advised diet and exercise Code(s): E66.9 - OBESITY, UNSPECIFIED (11) HLD (hyperlipidemia) Current Visit: Yes Status: Acute Assessment & Plan: -continue statin DVT prophylaxis SCD/heparin subcu CODE STATUS full Discharge plan pending clinical stability (2) Acute UTI (urinary tract infection) Current Visit: Yes Status: Acute Code(s): N39.0 - URINARY TRACT INFECTION, SITE NOT SPECIFIED (3) Acute renal failure (ARF) Current Visit: Yes Status: Acute (4) Fall Current Visit: Yes Status: Acute Code(s): W19.XXXA - UNSPECIFIED FALL, INITIAL ENCOUNTER (5) Left flank pain Current Visit: No Status: Acute Code(s): R10.9 - UNSPECIFIED ABDOMINAL PAIN (6) Diabetes mellitus Current Visit: Yes Status: Acute Code(s): E11.9 - TYPE 2 DIABETES MELLITUS WITHOUT COMPLICATIONS (7) CAD (coronary artery disease) Current Visit: Yes Status: Acute Code(s): I25.10 - ATHSCL HEART DISEASE OF [place] CORONARY ARTERY W/O ANG PCTRS (8) HTN (hypertension) Current Visit: Yes Status: Acute Code(s): I10 - ESSENTIAL (PRIMARY) HYPERTENSION (9) History of prostate cancer Current Visit: Yes Status: Acute Code(s): Z85.46 - PERSONAL HISTORY OF [place]IGNANT NEOPLASM OF PROSTATE (10) Obesity (BMI 30-39.9) Current Visit: Yes Status: Acute Code(s): E66.9 - OBESITY, UNSPECIFIED (11) HLD (hyperlipidemia) Current Visit: Yes Status: Acute Code(s): E78.5 - HYPERLIPIDEMIA, UNSPECIFIED
[2024-10-05 07:28] LABS: Absolute Neutrophil Ct (ANC) 6.11 x10^3/uL (1.78-5.38); BASOPHIL % 0.4 % (0.2-1.2); Basophil (Absolute #) 0.03 x10^3/uL (0.01-0.08); Eosinophil % 0.6 % (0.8-7.0); Eosinophil (Absolute #) 0.04 x10^3/uL (0.04-0.54); Hematocrit 44.6 % (40.1-51.0); IMMATURE GRAN # 0.07 x10^3u/L (0.001-0.031); Lymphocyte (Absolute #) 0.51 x10^3/uL (1.32-3.57); Mean Cell Volume 85.3 fL (79.0-92.2); Mean Corpuscular Hemoglobin 26.8 pg (25.7-32.2); Mean Corpuscular Hgb Concent. 31.4 g/dL (32.3-36.5); Mean Platelet Volume 11.5 fL (9.4-12.4); Monocyte (Absolute #) 0.48 x10^3/uL (0.30-0.82); Monocytes % 6.6 % (5.3-12.2); Neutrophil % 84.4 % (34.0-67.9); Platelet Count 151 x10^3/uL (163-337); Red Blood Count 5.23 x10^6/uL (4.63-6.08); Red Cell Distribution Width 17.4 % (11.6-14.4); White Blood Count 7.2 x10^3/uL (4.23-9.07)
[2024-10-05 07:41] LABS: ALBUMIN 3.9 g/dL (3.5-5.0); BILIRUBIN,TOTAL 1.2 mg/dL (0.2-1.3); Calcium 9.1 mg/dL (8.4-10.2); Creatinine 1 2.33 mg/dL (0.66-1.25); EST GLOMERULAR FILTRATION RATE 27.6 ML/MIN; Potassium 4.7 mmol/L (3.5-5.1)
[2024-10-05] MEDS: Cymbalta 30 MG Capsule PO SCH (09:52)
[2024-10-05] MEDS: Cordarone 200 MG PO SCH (09:52)
[2024-10-05] MEDS: NORVASC 5 MG PO SCH (09:52)
[2024-10-05] MEDS: THERAGRAN MULTIVITAMIN PO SCH (09:52)
[2024-10-05] MEDS: Pepcid 20 MG PO SCH (09:52)
[2024-10-05] MEDS: Toprol Xl 50 MG PO SCH (09:52)
[2024-10-05] MEDS: ENTRESTO 49 MG-51 MG TABLET PO SCH (09:52)
[2024-10-05] MEDS: NORCO 7.5/325 MG TAB PO PRN (09:58)
[2024-10-05 10:25] LABS: Slide Review 1 YES
[2024-10-05 12:30] LABS: Appearance Cloudy (Clear); Bacteria None Seen /HPF (None Seen); Bilirubin Negative (Negative); Blood Small (Negative); Epithelial Cells Rare /HPF (None Seen); Glucose, Urine >=1000 mg/dL (Negative); Ketones Negative (Negative); Leukocyte Esterase Moderate (Negative); Nitrite Negative (Negative); Protein,Urine Dip 30 (Negative); Urobilinogen 0.2 mg/dL (0.2); WBC >100 /HPF (0-5)
[2024-10-05] MEDS: HUMALOG SQ PRN (12:57)
[2024-10-05] MEDS ORDERED: Miralax Powder 17GM PACKET PO PRN (14:34)
--- NOTE | 2024-10-06 05:08 | PCM.NOTE ---
Date and Time: 10/06/24 8350 Subjective Assessment: is a 80 year old male 79 years old male with PMH of atrial fibrillation on Eliquis, coronary artery disease with CABG, hypertension, hyperlipidemia, kidney stones status post ureteral stent placement almost a week ago at [facility] presented in the ER 10/03/24 after he was trying to get off of the to ilet and the side rail broke, hit his left flank against the toilet. No head trauma. C/o pain in left flank. Weir relieved pain. Has c/o hematuria which is there since stent placement. he denied Nausea, vomiting, diarrhea. no chest pain, cough congestion SOB noted .CT abdomen and pelvis demonstrates . Status post left ureteral stent catheter placement. Continued hydronephrotic and edematous appearing left kidney. New air bubbles in left kidney and urinary bladder either iatrogenic versus gas-forming infection. In the ER his vital signs stable. Lab findings remarkable for leukocytosis with WBC at 16.3 , BUN 23 creatinine 1.91. Urine was positive for blood nitrite and leukocyte esterase. Admitted for UTI/PHILOMENA. Will start Zosyn. Ucult with Ecoli. Sensitive to zosyn he received IP. Will send home on cefdinir. 10/04/24: Met with patient and spouse bedside. Patient endorsing improvement in flank pain. Reports that he was concerned when he fell that the fall may have disrupted his stent placement. He does still have some tenderness to the left abdomen from the fall. He denies urinary retention but states he has urinary hesitancy at baseline. Creat went up overnight despite fluids. Will check PVR with bladder scan for retention. Antibiotics changed to Zosyn. 10/05/24: Met with patient bedside. Flank pain has now resolved. Creat level not improving despite fluids. I&O records not accurate due to incontinence. Will anchor linares. Bladder US not available. Continue Zosyn. Blood and urine cultures pending. WBC now WNL. 10/06/24 Met with patient bedside. Creat levels improving with linares anchored. Will continue IVF - most likely will have to dc with linares in place and follow up with urology OP. Patient sees Dr. Madrid. Will call Monday for recommendations and appt. Patient states flank pain much better. - Review of Systems Constitutional: No Symptoms Eyes: No Symptoms Ears, Nose, & Throat: No Symptoms Respiratory: No Symptoms Cardiac: No Symptoms Abdominal/Gastrointestinal: Other (flank pain ) Genitourinary Symptoms: Urinary Retention Musculoskeletal: No Symptoms, Other (FC) Skin: No Symptoms Neurological: No Symptoms Psychological: No Symptoms Endocrine: No Symptoms Hematologic/Lymphatic: No Symptoms Immunological/Allergic: No Symptoms Objective Exam General Appearance: no apparent distress Neurologic Exam: alert, oriented x 3, cooperative Skin Exam: normal color Eye Exam: PERRL Ears, Nose, Throat Exam: normal ENT inspection Neck Exam: normal inspection Respiratory Exam: normal breath sounds, lungs clear Cardiovascular Exam: regular rate/rhythm, normal heart sounds Gastrointestinal/Abdomen Exam: soft, normal bowel sounds, tenderness (Left flank region) Extremity Exam: normal inspection Back Exam: normal inspection Male Genitalia Exam: deferred Rectal Exam: deferred Objective Data Vital Signs: Vital Signs - 24 hr Temp Pulse Resp BP Pulse Ox 10/06/24 00:00 18 93 L 10/05/24 21:21 96 10/05/24 20:00 96.9 F 61 18 141/75 91 L 10/05/24 16:00 96.3 F 64 18 135/84 93 L 10/05/24 11:05 96 F 62 19 132/66 92 L 10/05/24 08:14 95 10/05/24 07:48 96.7 F 73 18 133/65 95 Pain Assessment - Last Documented Pain Intensity 3 Pain Scale Used 0-10 Pain Scale Intake and Output: Intake & Output 10/03/24 10/04/24 10/05/24 10/06/24 11:59 11:59 11:59 11:59 Intake Total 1084 3744 1882 Output Total 200 2060 1450 Balance 884 1684 432 Weight 141.4 kg Lab Results: Lab Results-Last 24 Hours 10/05/24 10/05/24 10/05/24 Range/Units 07:22 07:22 07:22 WBC 7.2 (4.23-9.07) x10^3/uL RBC 5.23 (4.63-6.08) x10^6/uL Hgb 14.0 (13.7-17.5) g/dL Hct 44.6 (40.1-51.0) % MCV 85.3 (79.0-92.2) fL MCH 26.8 (25.7-32.2) pg MCHC 31.4 L (32.3-36.5) g/dL RDW 17.4 H (11.6-14.4) % Plt Count 151 L (163-337) x10^3/uL MPV 11.5 (9.4-12.4) fL Gran % 84.4 H (34.0-67.9) % Immature Gran % (Auto) 1.0 H (0.001-0.429) % Nucleat RBC Rel Count 0.0 (0.00-0.2) % Eos # (Auto) 0.04 (0.04-0.54) x10^3/uL Immature Gran # (Auto) 0.07 H (0.001-0.031) x10^3u/L Absolute Lymphs (auto) 0.51 L (1.32-3.57) x10^3/uL Absolute Monos (auto) 0.48 (0.30-0.82) x10^3/uL Absolute Nucleated RBC 0.00 (0.00-0.012) x10^3u/L Lymphocytes % 7.0 L (21.8-53.1) % Monocytes % 6.6 (5.3-12.2) % Eosinophils % 0.6 L (0.8-7.0) % Basophils % 0.4 (0.2-1.2) % Absolute Granulocytes 6.11 H (1.78-5.38) x10^3/uL Basophils # 0.03 (0.01-0.08) x10^3/uL Sodium 137 (135-145) mmol/L Potassium 4.7 (3.5-5.1) mmol/L Chloride 106 (98-107) mmol/L Carbon Dioxide 21 L (22-30) mmol/L Anion Gap 15.0 (5-15) MEQ/L BUN 32 H (9-20) mg/dL Creatinine 2.33 H (0.66-1.25) mg/dL Estimated GFR 27.6 ML/MIN Glucose 136 H (74-106) mg/dL POC Glucometer (74 to 106) mg/dL Hemoglobin A1c 6.28 H (4.5-6.0) % Calcium 9.1 (8.4-10.2) mg/dL Total Bilirubin 1.20 (0.2-1.3) mg/dL AST 26 (17-59) U/L ALT 17 (0-50) U/L Alkaline Phosphatase 84 (38-126) U/L Serum Total Protein 7.0 (6.3-8.2) g/dL Albumin 3.9 (3.5-5.0) g/dL Urine Color (Yellow) Urine Appearance (Clear) Urine pH (4.6-8.0) Ur Specific [place] (1.005-1.030) Urine Protein (Negative) Urine Glucose (UA) (Negative) mg/dL Urine Ketones (Negative) Urine Blood (Negative) Urine Nitrite (Negative) Urine Bilirubin (Negative) Urine Urobilinogen (0.2) mg/dL Ur Leukocyte Esterase (Negative) U Hyaline Cast (Auto) (0-2) /LPF Urine Microscopic RBC (0-5) /HPF Urine Microscopic WBC (0-5) /HPF Ur Epithelial Cells (None Seen) /HPF Urine Bacteria (None Seen) /HPF Urine Culture Reflexed (NO) Slides for Path Review YES 10/05/24 10/05/24 10/05/24 Range/Units 07:40 10:59 10:59 WBC (4.23-9.07) x10^3/uL RBC (4.63-6.08) x10^6/uL Hgb (13.7-17.5) g/dL Hct (40.1-51.0) % MCV (79.0-92.2) fL MCH (25.7-32.2) pg MCHC (32.3-36.5) g/dL RDW (11.6-14.4) % Plt Count (163-337) x10^3/uL MPV (9.4-12.4) fL Gran % (34.0-67.9) % Immature Gran % (Auto) (0.001-0.429) % Nucleat RBC Rel Count (0.00-0.2) % Eos # (Auto) (0.04-0.54) x10^3/uL Immature Gran # (Auto) (0.001-0.031) x10^3u/L Absolute Lymphs (auto) (1.32-3.57) x10^3/uL Absolute Monos (auto) (0.30-0.82) x10^3/uL Absolute Nucleated RBC (0.00-0.012) x10^3u/L Lymphocytes % (21.8-53.1) % Monocytes % (5.3-12.2) % Eosinophils % (0.8-7.0) % Basophils % (0.2-1.2) % Absolute Granulocytes (1.78-5.38) x10^3/uL Basophils # (0.01-0.08) x10^3/uL Sodium (135-145) mmol/L Potassium (3.5-5.1) mmol/L Chloride (98-107) mmol/L Carbon Dioxide (22-30) mmol/L Anion Gap (5-15) MEQ/L BUN (9-20) mg/dL Creatinine (0.66-1.25) mg/dL Estimated GFR ML/MIN Glucose (74-106) mg/dL POC Glucometer 130 H 233 H 233 H (74 to 106) mg/dL Hemoglobin A1c (4.5-6.0) % Calcium (8.4-10.2) mg/dL Total Bilirubin (0.2-1.3) mg/dL AST (17-59) U/L ALT (0-50) U/L Alkaline Phosphatase (38-126) U/L Serum Total Protein (6.3-8.2) g/dL Albumin (3.5-5.0) g/dL Urine Color (Yellow) Urine Appearance (Clear) Urine pH (4.6-8.0) Ur Specific [place] (1.005-1.030) Urine Protein (Negative) Urine Glucose (UA) (Negative) mg/dL Urine Ketones (Negative) Urine Blood (Negative) Urine Nitrite (Negative) Urine Bilirubin (Negative) Urine Urobilinogen (0.2) mg/dL Ur Leukocyte Esterase (Negative) U Hyaline Cast (Auto) (0-2) /LPF Urine Microscopic RBC (0-5) /HPF Urine Microscopic WBC (0-5) /HPF Ur Epithelial Cells (None Seen) /HPF Urine Bacteria (None Seen) /HPF Urine Culture Reflexed (NO) Slides for Path Review 10/05/24 10/05/24 10/05/24 Range/Units 11:50 16:37 19:21 WBC (4.23-9.07) x10^3/uL RBC (4.63-6.08) x10^6/uL Hgb (13.7-17.5) g/dL Hct (40.1-51.0) % MCV (79.0-92.2) fL MCH (25.7-32.2) pg MCHC (32.3-36.5) g/dL RDW (11.6-14.4) % Plt Count (163-337) x10^3/uL MPV (9.4-12.4) fL Gran % (34.0-67.9) % Immature Gran % (Auto) (0.001-0.429) % Nucleat RBC Rel Count (0.00-0.2) % Eos # (Auto) (0.04-0.54) x10^3/uL Immature Gran # (Auto) (0.001-0.031) x10^3u/L Absolute Lymphs (auto) (1.32-3.57) x10^3/uL Absolute Monos (auto) (0.30-0.82) x10^3/uL Absolute Nucleated RBC (0.00-0.012) x10^3u/L Lymphocytes % (21.8-53.1) % Monocytes % (5.3-12.2) % Eosinophils % (0.8-7.0) % Basophils % (0.2-1.2) % Absolute Granulocytes (1.78-5.38) x10^3/uL Basophils # (0.01-0.08) x10^3/uL Sodium (135-145) mmol/L Potassium (3.5-5.1) mmol/L Chloride (98-107) mmol/L Carbon Dioxide (22-30) mmol/L Anion Gap (5-15) MEQ/L BUN (9-20) mg/dL Creatinine (0.66-1.25) mg/dL Estimated GFR ML/MIN Glucose (74-106) mg/dL POC Glucometer 125 H 156 H (74 to 106) mg/dL Hemoglobin A1c (4.5-6.0) % Calcium (8.4-10.2) mg/dL Total Bilirubin (0.2-1.3) mg/dL AST (17-59) U/L ALT (0-50) U/L Alkaline Phosphatase (38-126) U/L Serum Total Protein (6.3-8.2) g/dL Albumin (3.5-5.0) g/dL Urine Color Yellow (Yellow) Urine Appearance Cloudy A (Clear) Urine pH 5.0 (4.6-8.0) Ur Specific [place] 1.020 (1.005-1.030) Urine Protein 30 (Negative) Urine Glucose (UA) >=1000 A (Negative) mg/dL Urine Ketones Negative (Negative) Urine Blood Small A (Negative) Urine Nitrite Negative (Negative) Urine Bilirubin Negative (Negative) Urine Urobilinogen 0.2 (0.2) mg/dL Ur Leukocyte Esterase Moderate A (Negative) U Hyaline Cast (Auto) 3-5 A (0-2) /LPF Urine Microscopic RBC 6-10 A (0-5) /HPF Urine Microscopic WBC >100 A (0-5) /HPF Ur Epithelial Cells Rare (None Seen) /HPF Urine Bacteria None Seen (None Seen) /HPF Urine Culture Reflexed YES (NO) Slides for Path Review Assessment/Plan (1) Sepsis Current Visit: Yes Status: Acute Assessment & Plan: -Met criteria with elevated HR > 90, WBC elevated, and UTI -secondary to UTI -CT abd/pelvis demonstrates status post left ureteral stent catheter placement. Continued hydronephrotic and edematous appearing left kidney. New air bubbles in left kidney and urinary bladder either iatrogenic versus gas-forming infection. -Ucult pending -continue with Zosyn - follow cultures 10/05: -No longer meets criteria -Ucult pending-continue zosyn -May consider transfer for urology if no improvement in creat 10/06: -Ucult with ecoli - de-escalate abx to ceftriaxone from zosyn (2) Acute UTI (urinary tract infection) Current Visit: Yes Status: Acute Assessment & Plan: -see sepsis Code(s): N39.0 - URINARY TRACT INFECTION, SITE NOT SPECIFIED (3) Acute renal failure (ARF) Current Visit: Yes Status: Acute Assessment & Plan: -Creat reviewed at 2.19 (baseline around 1.1-1.2) -Monitor renal/lytes -Avoid nephrotoxic meds -IVF 10/05: -creat reviewed and continues to uptrend now at 2.33>2.19 -continue IVF -[place] linares 10/06: -creat reviewed, now at 2.02 <2.33 -most likely r/t retention -Follow creat levels -continue linares cath - may send patient home and f/u with urology - ##Urinary retention -Linares placed 10/04/24 with > 500ml out when placed -creat improving -Will most likely have to send patient home with linares and close urology follow up - Pt sees Dr. Madrid (4) Fall Current Visit: Yes Status: Acute Assessment & Plan: -No head trauma -CT abdomen for left flank pain demonstrates status post left ureteral stent catheter placement. Continued hydronephrotic and edematous appearing left kidney. New air bubbles in left kidney and urinary bladder either iatrogenic versus gas-forming infection. -Pain control - pain almost resolved today - still a tad tender Code(s): W19.XXXA - UNSPECIFIED FALL, INITIAL ENCOUNTER (5) Left flank pain Current Visit: No Status: Acute Assessment & Plan: -see fall Code(s): R10.9 - UNSPECIFIED ABDOMINAL PAIN (6) Diabetes mellitus Current Visit: Yes Status: Acute Assessment & Plan: -ADA diet -AIC -SSI Code(s): E11.9 - TYPE 2 DIABETES MELLITUS WITHOUT COMPLICATIONS (7) CAD (coronary artery disease) Current Visit: Yes Status: Acute Assessment & Plan: -Status post CABG on 05/07/2025 -No chest pain or shortness of breath - resume home meds including Asp/Statins, holding BB for now due to soft BP Code(s): I25.10 - ATHSCL HEART DISEASE OF [place] CORONARY ARTERY W/O ANG PCTRS (8) HTN (hypertension) Current Visit: Yes Status: Acute Assessment & Plan: -Blood pressure towards softer side -Keep holding all home Bp meds, pls resume BB in am Code(s): I10 - ESSENTIAL (PRIMARY) HYPERTENSION (9) History of prostate cancer Current Visit: Yes Status: Acute Assessment & Plan: -S/p surgery -Currently in remission Code(s): Z85.46 - PERSONAL HISTORY OF MALIGNANT NEOPLASM OF PROSTATE (10) Obesity (BMI 30-39.9) Current Visit: Yes Status: Acute Assessment & Plan: -Advised diet and exercise Code(s): E66.9 - OBESITY, UNSPECIFIED (11) HLD (hyperlipidemia) Current Visit: Yes Status: Acute Assessment & Plan: -continue statin DVT prophylaxis SCD/heparin subcu CODE STATUS full Discharge plan pending clinical stability (2) Acute UTI (urinary tract infection) Current Visit: Yes Status: Acute Code(s): N39.0 - URINARY TRACT INFECTION, SITE NOT SPECIFIED (3) Acute renal failure (ARF) Current Visit: Yes Status: Acute (4) Fall Current Visit: Yes Status: Acute Code(s): W19.XXXA - UNSPECIFIED FALL, INITIAL ENCOUNTER (5) Left flank pain Current Visit: No Status: Acute Code(s): R10.9 - UNSPECIFIED ABDOMINAL PAIN (6) Diabetes mellitus Current Visit: Yes Status: Acute Code(s): E11.9 - TYPE 2 DIABETES MELLITUS WITHOUT COMPLICATIONS (7) CAD (coronary artery disease) Current Visit: Yes Status: Acute Code(s): I25.10 - ATHSCL HEART DISEASE OF [place] CORONARY ARTERY W/O ANG PCTRS (8) HTN (hypertension) Current Visit: Yes Status: Acute Code(s): I10 - ESSENTIAL (PRIMARY) HYP ERTENSION (9) History of prostate cancer Current Visit: Yes Status: Acute Code(s): Z85.46 - PERSONAL HISTORY OF MALIGNANT NEOPLASM OF PROSTATE (10) Obesity (BMI 30-39.9) Current Visit: Yes Status: Acute Code(s): E66.9 - OBESITY, UNSPECIFIED (11) HLD (hyperlipidemia) Current Visit: Yes Status: Acute Code(s): E78.5 - HYPERLIPIDEMIA, UNSPECIFIED (12) Urinary retention Current Visit: Yes Status: Acute Code(s): R33.9 - RETENTION OF URINE, UNSPECIFIED
[2024-10-06 09:16] LABS: Absolute Neutrophil Ct (ANC) 4.68 x10^3/uL (1.78-5.38); BASOPHIL % 0.8 % (0.2-1.2); Basophil (Absolute #) 0.05 x10^3/uL (0.01-0.08); Eosinophil (Absolute #) 0.12 x10^3/uL (0.04-0.54); Hematocrit 39.9 % (40.1-51.0); Hemoglobin 11.9 g/dL (13.7-17.5); IMMATURE GRAN # 0.06 x10^3u/L (0.001-0.031); Lymphocyte (Absolute #) 0.54 x10^3/uL (1.32-3.57); Lymphocytes % 9.1 % (21.8-53.1); Mean Cell Volume 90.3 fL (79.0-92.2); Mean Corpuscular Hemoglobin 26.9 pg (25.7-32.2); Mean Corpuscular Hgb Concent. 29.8 g/dL (32.3-36.5); Mean Platelet Volume 11.2 fL (9.4-12.4); Monocytes % 8.4 % (5.3-12.2); Neutrophil % 78.7 % (34.0-67.9); Platelet Count 138 x10^3/uL (163-337); Red Blood Count 4.42 x10^6/uL (4.63-6.08); Red Cell Distribution Width 17.1 % (11.6-14.4)
[2024-10-06 09:25] LABS: ALBUMIN 2.9 g/dL (3.5-5.0); BILIRUBIN,TOTAL 1.2 mg/dL (0.2-1.3); Calcium 8.8 mg/dL (8.4-10.2); Creatinine 1 2.02 mg/dL (0.66-1.25); EST GLOMERULAR FILTRATION RATE 32.7 ML/MIN; Potassium 4.7 mmol/L (3.5-5.1); Total Protein 5.7 g/dL (6.3-8.2)
[2024-10-06] MEDS: ROCEPHIN 1 GM / 100 ML NaCl 1 GM/100 ML IVPB IV SCH (11:38)
[2024-10-06 12:21] VITALS: O2SAT 90
[2024-10-06] MEDS ORDERED: Nitrostat 0.4 MG Tablet SL PRN (15:40)
[2024-10-06 15:43] VITALS: BP 145/76; PULSE 95; RESP 24
--- NOTE | 2024-10-06 15:54 | PCM.CONS ---
History of Present Illness - Date of Consult Date of Encounter: 10/06/24 Consulting Paleology Professor: WALTER RODRIGUEZ MD Requesting Provider: Attending Provider: ABIGAIL QURESHI MD Primary Care Provider: PCP: BERNADINE HUGO - Consult Narrative HPI: Patient is a 79M who denies fevers, chills, nausea, vomiting, diarrhea, syncope, presyncope, dysphagia,odynophagia, orthopnea, paroxysmal nocturnal dyspnea, moses rtness of breath, chest pain, refluxsymptoms, belly pain, dysuria, hematuria, melena, hematochezia, seizures, paralysis, or other neurological changes. All other systems have been reviewed and are negative. cc:: The requesting physician will be sent a copy of the consult. Review of Systems - ROS Cardiac: Chest Pain (pt has ongoing chest pain with SOB on HFNC. Other ROS were not done as there were concerns for ACS) - Past Medical History Past Medical History: Yes Neurological History: No Pertinent History ENT History: No Pertinent History Cardiac History: Hypertension, Myocardial Infarction ([place]) Respiratory History: Sleep Apnea Endocrine Medical History: Diabetes Type II Musculoskelatal History: No Pertinent History GI Medical History: Polyps History: No Pertinent History Pyscho-Social History: Depression Male Reproductive Disorders: Prostate Cancer Comment: rectal fissure - Past Surgical History Past Surgical History: Yes Neuro Surgical History: No Pertinent History Cardiac History: Cardiac Catheterization, Cardiac Stent Respiratory Surgery: No Pertinent History GI Surgical History: No Pertinent History Genitourinary Surgical Hx: No Pertinent History Musculskeletal Surgical Hx: No Pertinent History Male Surgical History: Prostate Surgery Other Surgical History: baractic surgery 2015, protate cancer, prostatectomy, penile pump implant Significant Family History: no pertinent family hx - Social History Smoking Status: Former smoker Exposure to second hand smoke: No Alcohol: None Drug Use: none - Social Determinants of Health Will the patient participate in the screening: Yes Do you worry about a steady place to live?: No Do you have any problems with any of the following?: No known problems In the past 12 months,have you had to go without utilities?: No Have you or anyone in your house had to go without enough: No Transportation Issues: No Has anyone in your support network made you feel unsafe?: No Does the patient want assistance with any of the above?: No Medications & Allergies Home Medications: Home Medication List Amlodipine Besylate 5 mg [Norvasc 5 mg] 10 mg PO DAILY 08/29/22 [History Confirmed 10/04/24] Aspirin EC 81 mg [Ecotrin 81 mg] 81 mg PO DAILY 08/29/22 [History Confirmed 10/04/24] Atorvastatin Calcium 40 mg PO DAILY 08/29/22 [History Confirmed 10/04/24] Duloxetine HCl 30 mg [Cymbalta 30 MG Capsule] 60 mg PO DAILY 08/29/22 [History Confirmed 10/04/24] Metoprolol Succinate 50 mg [Toprol Xl 50 MG] 50 mg PO DAILY 08/29/22 [History Confirmed 10/04/24] Multivitamin 1 tab PO DAILY 08/29/22 [History Confirmed 10/04/24] Amiodarone HCl 200 mg PO DAILY 10/04/24 [History Confirmed 10/04/24] Apixaban [Eliquis 2.5 mg Tablet] 2.5 mg PO BID 10/04/24 [History Confirmed 10/04/24] Empagliflozin [Jardiance] 25 mg PO DAILY 10/04/24 [History Confirmed 10/04/24] Famotidine 20 mg [Pepcid 20 MG] 20 mg PO DAILY 10/04/24 [History Confirmed 10/04/24] Hydrocodone/Acetaminophen [Hydrocodone-Acetamin 7.5-325] 1 tab PO Q6H PRN MDD 4 tabs 10/04/24 [History Confirmed 10/04/24] Insulin Degludec [Tresiba Flextouch U-100] 60 units SQ BID 10/04/24 [History Confirmed 10/04/24] Sacubitril/Valsartan [Entresto 49 mg-51 mg Tablet] 1 tab PO DAILY 10/04/24 [History Confirmed 10/04/24] Sertraline HCl 50 mg [Zoloft 50 mg Tablet] 50 mg PO HS 10/04/24 [History Confirmed 10/04/24] Zolpidem Tartrate 10 mg [Ambien 10 MG] 10 mg PO HS 10/04/24 [History Confirmed 10/04/24] Allergies/Adverse Reactions: Allergies Allergy/AdvReac Type Severity Reaction Status Date / Time Sulfa (Sulfonamide Allergy Hives Verified 10/03/24 16:37 Antibiotics) NSAIDS (Non-Steroidal AdvReac Verified 10/03/24 16:37 Anti-Inflamma Exam - Vitals Vital Signs: Vital Signs - 24 hr Temp Pulse Resp BP Pulse Ox 10/06/24 15:43 97.1 F 95 H 24 145/76 90 L 10/06/24 12:00 97 F 65 143/76 90 L 10/06/24 07:54 96.9 F 71 17 163/74 94 L 10/06/24 06:07 93 L 10/06/24 04:00 97.1 F 71 20 150/77 94 L 10/06/24 00:00 18 93 L 10/05/24 21:21 96 10/05/24 20:00 96.9 F 61 18 141/75 91 L 10/05/24 16:00 96.3 F 64 18 135/84 93 L General:: moderate distress (Complete exam was not done as the pt was in distress and plans were being made to transfer the pt for possible ACS) SpO2: 90 Results Vital Signs: Vital Signs - 24 hr Temp Pulse Resp BP Pulse Ox 10/06/24 15:43 97.1 F 95 H 24 145/76 90 L 10/06/24 12:00 97 F 65 143/76 90 L 10/06/24 07:54 96.9 F 71 17 163/74 94 L 10/06/24 06:07 93 L 10/06/24 04:00 97.1 F 71 20 150/77 94 L 10/06/24 00:00 18 93 L 10/05/24 21:21 96 10/05/24 20:00 96.9 F 61 18 141/75 91 L 10/05/24 16:00 96.3 F 64 18 135/84 93 L Pain Assessment - Last Documented Pain Intensity 5 Pain Scale Used 0-10 Pain Scale Intake and Output: Intake & Output 10/04/24 10/05/24 10/06/24 10/07/24 11:59 11:59 11:59 11:59 Intake Total 1084 3744 3239 0 Output Total 200 2060 3225 Balance 884 1684 14 0 Weight 141.4 kg LAB: I have reviewed the Labs in [email or web address]. Assessment & Plan (1) Chest pain at rest Current Visit: Yes Status: Acute Assessment & Plan: Pt with prior history of CAD s/p PCI and stenting reports new onset chest pain associated with chills, rigors and diaphoresis similar to what he experienced when he had [place] in the past EKG was concerning for STEMI, During my evalaution EKG was still not uploaded. Troponins were pending In the setting of ongoing chest pain, SOB, and EKG changes pt to be treated as ACS Advised that the pt be started on iv heparin as per ACS protocol and be transferred to a place with [facility] lab[facility] facility for further evaluation Code(s): R07.9 - CHEST PAIN, UNSPECIFIED - Encounter Encounter: "The entirety of this encounter was performed via Telemedicine using audio and visual "
[2024-10-06] MEDS ORDERED: Heparin 25,000 units/D5W: USE ORDER SET PROTO 25,000 UNITS/250 ML BAG IV ONE (16:01)
[2024-10-06] MEDS: HEPARIN 5000 UNITS/0.5 ML (HIGH RISK MED) IV ONE (16:11)
--- NOTE | 2024-10-06 16:13 | PCM.DS ---
Discharge Summary Date of Admission: 10/04/24 00:44 Date of Discharge: 10/06/24 Admitting Physician: ABIGAIL QURESHI MD Primary Care Provider: BERNADINE HUGO <KYLE TRUONG - Last Filed: 10/06/24 16:07> Date of Admission: 10/04/24 00:44 Date of Discharge: 10/06/24 Admitting Physician: ABIGAIL QURESHI MD Primary Care Provider: BERNADINE HUGO <SHEKHAR SALEH - Last Filed: 10/06/24 21:48> Allergies <KYLE TRUONG - Last Filed: 10/06/24 16:07> <SHEKHAR SALEH - Last Filed: 10/06/24 21:48> Allergies Sulfa (Sulfonamide Antibiotics) Allergy (Verified 10/03/24 16:37) Hives NSAIDS (Non-Steroidal Anti-Inflamma Adverse Reaction (Verified 10/03/24 16:37) Hospital Summary - Hospital Course Hospital Course: is a 79 year old male 79 years old male with PMH of atrial fibrillation on Eliquis, coronary artery disease with CABG, hypertension, hyperlipidemia, kidney stones status post ureteral stent placement almost a week ago at [facility] presented in the ER 10/03/24 after he was trying to get off of the toilet and the side rail broke, hit his left flank against the toilet. No head trauma. C/o pain in left flank. Griffith relieved pain. Has c/o hematuria which is there since stent placement. he denied Nausea, vomiting, diarrhea. no chest pain, cough congestion SOB noted .CT abdomen and pelvis demonstrates . Status post left ureteral stent catheter placement. Continued hydronephrotic and edematous appearing left kidney. New air bubbles in left kidney and urinary bladder either iatrogenic versus gas-forming infection. In the ER his vital signs stable. Lab findings remarkable for leukocytosis with WBC at 16.3 , BUN 23 creatinine 1.91. Urine was positive for blood nitrite and leukocyte esterase. Admitted for UTI/PHILOMENA. Will start Zosyn. Ucult with Ecoli. Sensitive to zosyn he received IP. Started on Ceftriaxone. Creat levels improving with linares anchored. Will continue IVF - most likely will have to dc with linares in place and follow up with urology OP. Patient sees Dr. Madrid. Will call Monday for recommendations and appt. Patient states flank pain much better. Pt with pr ior history of CAD s/p PCI and stenting reports new onset chest pain associated with chills, rigors and diaphoresis similar to what he experienced when he had [place] in the past. EKG was concerning for STEMI. Troponins pending. In the setting of ongoing chest pain, SOB, and EKG changes pt to be treated as ACS. Pt started on iv heparin as per ACS protocol and transferred for cath at [facility]. Discharge Note I spent 35 minutes [id number] with the patient on the day of discharge performing discharge exam, discussing hospital stay and discharge instructions with patient and caregivers, preparation of discharge records, prescriptions & referral forms and addressing any questions/concerns the patient had as documented above. - Vitals & Intake/Output Vital Signs: Vital Signs Temperature 97.1 F 10/06/24 15:43 Pulse Rate 95 H 10/06/24 15:43 Respiratory Rate 24 10/06/24 15:43 Blood Pressure 145/76 10/06/24 15:43 O2 Sat by Pulse Oximetry 90 L 10/06/24 15:54 Intake & Output: Intake & Output 10/04/24 10/05/24 10/06/24 10/07/24 11:59 11:59 11:59 11:59 Intake Total 1084 3744 3239 0 Output Total 200 2060 3225 Balance 884 1684 14 0 Weight 141.4 kg - Lab Result Diagrams: 10/06/24 08:55 10/06/24 08:55 Lab Results-Last 24 Hrs: Lab Results-Last 24 Hours 10/05/24 10/05/24 10/06/24 Range/Units 16:37 19:21 07:06 WBC (4.23-9.07) x10^3/uL RBC (4.63-6.08) x10^6/uL Hgb (13.7-17.5) g/dL Hct (40.1-51.0) % MCV (79.0-92.2) fL MCH (25.7-32.2) pg MCHC (32.3-36.5) g/dL RDW (11.6-14.4) % Plt Count (163-337) x10^3/uL MPV (9.4-12.4) fL Gran % (34.0-67.9) % Immature Gran % (Auto) (0.001-0.429) % Nucleat RBC Rel Count (0.00-0.2) % Eos # (Auto) (0.04-0.54) x10^3/uL Immature Gran # (Auto) (0.001-0.031) x10^3u/L Absolute Lymphs (auto) (1.32-3.57) x10^3/uL Absolute Monos (auto) (0.30-0.82) x10^3/uL Absolute Nucleated RBC (0.00-0.012) x10^3u/L Lymphocytes % (21.8-53.1) % Monocytes % (5.3-12.2) % Eosinophils % (0.8-7.0) % Basophils % (0.2-1.2) % Absolute Granulocytes (1.78-5.38) x10^3/uL Basophils # (0.01-0.08) x10^3/uL Sodium (135-145) mmol/L Potassium (3.5-5.1) mmol/L Chloride (98-107) mmol/L Carbon Dioxide (22-30) mmol/L Anion Gap (5-15) MEQ/L BUN (9-20) mg/dL Creatinine (0.66-1.25) mg/dL Estimated GFR ML/MIN Glucose (74-106) mg/dL POC Glucometer 125 H 156 H 128 H (74 to 106) mg/dL Calcium (8.4-10.2) mg/dL Total Bilirubin (0.2-1.3) mg/dL AST (17-59) U/L ALT (0-50) U/L Alkaline Phosphatase (38-126) U/L Serum Total Protein (6.3-8.2) g/dL Albumin (3.5-5.0) g/dL 10/06/24 10/06/24 10/06/24 Range/Units 08:55 08:55 11:45 WBC 6.0 (4.23-9.07) x10^3/uL RBC 4.42 L (4.63-6.08) x10^6/uL Hgb 11.9 L (13.7-17.5) g/dL Hct 39.9 L (40.1-51.0) % MCV 90.3 (79.0-92.2) fL MCH 26.9 (25.7-32.2) pg MCHC 29.8 L (32.3-36.5) g/dL RDW 17.1 H (11.6-14.4) % Plt Count 138 L (163-337) x10^3/uL MPV 11.2 (9.4-12.4) fL Gran % 78.7 H (34.0-67.9) % Immature Gran % (Auto) 1.0 H (0.001-0.429) % Nucleat RBC Rel Count 0.0 (0.00-0.2) % Eos # (Auto) 0.12 (0.04-0.54) x10^3/uL Immature Gran # (Auto) 0.06 H (0.001-0.031) x10^3u/L Absolute Lymphs (auto) 0.54 L (1.32-3.57) x10^3/uL Absolute Monos (auto) 0.50 (0.30-0.82) x10^3/uL Absolute Nucleated RBC 0.00 (0.00-0.012) x10^3u/L Lymphocytes % 9.1 L (21.8-53.1) % Monocytes % 8.4 (5.3-12.2) % Eosinophils % 2.0 (0.8-7.0) % Basophils % 0.8 (0.2-1.2) % Absolute Granulocytes 4.68 (1.78-5.38) x10^3/uL Basophils # 0.05 (0.01-0.08) x10^3/uL Sodium 137 (135-145) mmol/L Potassium 4.7 (3.5-5.1) mmol/L Chloride 108 H (98-107) mmol/L Carbon Dioxide 19 L (22-30) mmol/L Anion Gap 15.0 (5-15) MEQ/L BUN 30 H (9-20) mg/dL Creatinine 2.02 H (0.66-1.25) mg/dL Estimated GFR 32.7 ML/MIN Glucose 128 H (74-106) mg/dL POC Glucometer 138 H (74 to 106) mg/dL Calcium 8.8 (8.4-10.2) mg/dL Total Bilirubin 1.20 (0.2-1.3) mg/dL AST 21 (17-59) U/L ALT 15 (0-50) U/L Alkaline Phosphatase 81 (38-126) U/L Serum Total Protein 5.7 L (6.3-8.2) g/dL Albumin 2.9 L (3.5-5.0) g/dL Micro Results-Entire Visit: Microbiology 10/05/24 11:50 Urine Culture - Final Urine, Catheterized YEAST PRESENT 10/03/24 19:20 Urine Culture - Final Clean Catch Midstream Escherichia Coli 10/04/24 11:40 Blood Culture - Preliminary Blood 10/04/24 11:47 Blood Culture - Preliminary Blood Accuchecks Date 10/06/24 Date 10/06/24 Date 10/05/24 Date 10/05/24 Time 12:14 Time 07:54 Time 16:54 - Procedures and Test Procedures and Tests throughout Hospitalization: Therapy Orders & Screens 10/04/24 02:18 RT Screen per Nursing Assess ONCE Comment: Protocol Order Physician Instructions: Greater than 3 points order RT Admission Screen Reason For Exam: Triggered on Admission Diagnosis: Came to ER after fall at home Diagnosis: Came to ER after fall at home Pneumonia: No Home O2: Yes: PRN Asthma: No CHF: No Home CPAP/BIPAP: Yes Home Nebs/MDI: No Total Points: 10 10/04/24 02:46 Respiratory Therapy Consult ONCE Comment: Reason For Exam: Diagnosis: Came to ER after fall at home 10/04/24 02:51 Oxygen Nasal Cannula 2 lpm Comment: Diagnosis: Came to ER after fall at home 10/06/24 06:07 BiPap/CPAP ROUTINE Comment: Diagnosis: Came to ER after fall at home 10/06/24 15:14 EKG STAT Comment: Diagnosis: Came to ER after fall at home <KYLE TRUONG - Last Filed: 10/06/24 16:07> - Vitals & Intake/Output Vital Signs: Vital Signs Temperature 96.0 F 10/06/24 17:06 Pulse Rate 95 H 10/06/24 15:43 Respiratory Rate 24 10/06/24 15:43 Blood Pressure 145/76 10/06/24 15:43 O2 Sat by Pulse Oximetry 90 L 10/06/24 15:54 Intake & Output: Intake & Output 10/04/24 10/05/24 10/06/24 10/07/24 11:59 11:59 11:59 11:59 Intake Total 1084 3744 3239 0 Output Total 200 2060 3225 950 Balance 884 1684 14 -950 Weight 141.4 kg - Lab Result Diagrams: 10/06/24 16:13 10/06/24 08:55 Lab Results-Last 24 Hrs: Lab Results-Last 24 Hours 10/06/24 10/06/24 10/06/24 Range/Units 07:06 08:55 08:55 WBC 6.0 (4.23-9.07) x10^3/uL RBC 4.42 L (4.63-6.08) x10^6/uL Hgb 11.9 L (13.7-17.5) g/dL Hct 39.9 L (40.1-51.0) % MCV 90.3 (79.0-92.2) fL MCH 26.9 (25.7-32.2) pg MCHC 29.8 L (32.3-36.5) g/dL RDW 17.1 H (11.6-14.4) % Plt Count 138 L (163-337) x10^3/uL MPV 11.2 (9.4-12.4) fL Gran % 78.7 H (34.0-67.9) % Immature Gran % (Auto) 1.0 H (0.001-0.429) % Nucleat RBC Rel Count 0.0 (0.00-0.2) % Eos # (Auto) 0.12 (0.04-0.54) x10^3/uL Immature Gran # (Auto) 0.06 H (0.001-0.031) x10^3u/L Absolute Lymphs (auto) 0.54 L (1.32-3.57) x10^3/uL Absolute Monos (auto) 0.50 (0.30-0.82) x10^3/uL Absolute Nucleated RBC 0.00 (0.00-0.012) x10^3u/L Lymphocytes % 9.1 L (21.8-53.1) % Monocytes % 8.4 (5.3-12.2) % Eosinophils % 2.0 (0.8-7.0) % Basophils % 0.8 (0.2-1.2) % Absolute Granulocytes 4.68 (1.78-5.38) x10^3/uL Basophils # 0.05 (0.01-0.08) x10^3/uL PT (9.4-12.5) SECONDS INR (0.8-3.0) APTT (25.1-36.5) SECONDS Sodium 137 (135-145) mmol/L Potassium 4.7 (3.5-5.1) mmol/L Chloride 108 H (98-107) mmol/L Carbon Dioxide 19 L (22-30) mmol/L Anion Gap 15.0 (5-15) MEQ/L BUN 30 H (9-20) mg/dL Creatinine 2.02 H (0.66-1.25) mg/dL Estimated GFR 32.7 ML/MIN Glucose 128 H (74-106) mg/dL POC Glucometer 128 H (74 to 106) mg/dL Calcium 8.8 (8.4-10.2) mg/dL Total Bilirubin 1.20 (0.2-1.3) mg/dL AST 21 (17-59) U/L ALT 15 (0-50) U/L Alkaline Phosphatase 81 (38-126) U/L Troponin I (0.000-0.033) ng/mL Serum Total Protein 5.7 L (6.3-8.2) g/dL Albumin 2.9 L (3.5-5.0) g/dL 10/06/24 10/06/24 10/06/24 Range/Units 11:45 15:30 16:13 WBC 3.0 L (4.23-9.07) x10^3/uL RBC 4.70 (4.63-6.08) x10^6/uL Hgb 12.6 L (13.7-17.5) g/dL Hct 39.4 L (40.1-51.0) % MCV 83.8 D (79.0-92.2) fL MCH 26.8 (25.7-32.2) pg MCHC 32.0 L (32.3-36.5) g/dL RDW 16.9 H (11.6-14.4) % Plt Count 153 L (163-337) x10^3/uL MPV 10.4 (9.4-12.4) fL Gran % (34.0-67.9) % Immature Gran % (Auto) (0.001-0.429) % Nucleat RBC Rel Count (0.00-0.2) % Eos # (Auto) (0.04-0.54) x10^3/uL Immature Gran # (Auto) (0.001-0.031) x10^3u/L Absolute Lymphs (auto) (1.32-3.57) x10^3/uL Absolute Monos (auto) (0.30-0.82) x10^3/uL Absolute Nucleated RBC (0.00-0.012) x10^3u/L Lymphocytes % (21.8-53.1) % Monocytes % (5.3-12.2) % Eosinophils % (0.8-7.0) % Basophils % (0.2-1.2) % Absolute Granulocytes (1.78-5.38) x10^3/uL Basophils # (0.01-0.08) x10^3/uL PT (9.4-12.5) SECONDS INR (0.8-3.0) APTT (25.1-36.5) SECONDS Sodium (135-145) mmol/L Potassium (3.5-5.1) mmol/L Chloride (98-107) mmol/L Carbon Dioxide (22-30) mmol/L Anion Gap (5-15) MEQ/L BUN (9-20) mg/dL Creatinine (0.66-1.25) mg/dL Estimated GFR ML/MIN Glucose (74-106) mg/dL POC Glucometer 138 H (74 to 106) mg/dL Calcium (8.4-10.2) mg/dL Total Bilirubin (0.2-1.3) mg/dL AST (17-59) U/L ALT (0-50) U/L Alkaline Phosphatase (38-126) U/L Troponin I < 0.012 (0.000-0.033) ng/mL Serum Total Protein (6.3-8.2) g/dL Albumin (3.5-5.0) g/dL 10/06/24 10/06/24 Range/Units 16:13 17:06 WBC (4.23-9.07) x10^3/uL RBC (4.63-6.08) x10^6/uL Hgb (13.7-17.5) g/dL Hct (40.1-51.0) % MCV (79.0-92.2) fL MCH (25.7-32.2) pg MCHC (32.3-36.5) g/dL RDW (11.6-14.4) % Plt Count (163-337) x10^3/uL MPV (9.4-12.4) fL Gran % (34.0-67.9) % Immature Gran % (Auto) (0.001-0.429) % Nucleat RBC Rel Count (0.00-0.2) % Eos # (Auto) (0.04-0.54) x10^3/uL Immature Gran # (Auto) (0.001-0.031) x10^3u/L Absolute Lymphs (auto) (1.32-3.57) x10^3/uL Absolute Monos (auto) (0.30-0.82) x10^3/uL Absolute Nucleated RBC (0.00-0.012) x10^3u/L Lymphocytes % (21.8-53.1) % Monocytes % (5.3-12.2) % Eosinophils % (0.8-7.0) % Basophils % (0.2-1.2) % Absolute Granulocytes (1.78-5.38) x10^3/uL Basophils # (0.01-0.08) x10^3/uL PT 12.4 (9.4-12.5) SECONDS INR 1.15 (0.8-3.0) APTT 31.5 (25.1-36.5) SECONDS Sodium (135-145) mmol/L Potassium (3.5-5.1) mmol/L Chloride (98-107) mmol/L Carbon Dioxide (22-30) mmol/L Anion Gap (5-15) MEQ/L BUN (9-20) mg/dL Creatinine (0.66-1.25) mg/dL Estimated GFR ML/MIN Glucose (74-106) mg/dL POC Glucometer 189 H (74 to 106) mg/dL Calcium (8.4-10.2) mg/dL Total Bilirubin (0.2-1.3) mg/dL AST (17-59) U/L ALT (0-50) U/L Alkaline Phosphatase (38-126) U/L Troponin I (0.000-0.033) ng/mL Serum Total Protein (6.3-8.2) g/dL Albumin (3.5-5.0) g/dL Micro Results-Entire Visit: Microbiology 10/05/24 11:50 Urine Culture - Final Urine, Catheterized YEAST PRESENT 10/03/24 19:20 Urine Culture - Final Clean Catch Midstream Escherichia Coli 10/04/24 11:40 Blood Culture - Preliminary Blood 10/04/24 11:47 Blood Culture - Preliminary Blood Accuchecks Date 10/06/24 Date 10/06/24 Date 10/06/24 Time 17:12 Time 12:14 Time 07:54 - Procedures and Test Procedures and Tests throughout Hospitalization: Therapy Orders & Screens 10/04/24 02:18 RT Screen per Nursing Assess ONCE Comment: Protocol Order Physician Instructions: Greater than 3 points order RT Admission Screen Reason For Exam: Triggered on Admission Diagnosis: Came to ER after fall at home Diagnosis: Came to ER after fall at home Pneumonia: No Home O2: Yes: PRN Asthma: No CHF: No Home CPAP/BIPAP: Yes Home Nebs/MDI: No Total Points: 10 10/04/24 02:46 Respiratory Therapy Consult ONCE Comment: Reason For Exam: Diagnosis: Came to ER after fall at home 10/04/24 02:51 Oxygen Nasal Cannula 2 lpm Comment: Diagnosis: Came to ER after fall at home 10/06/24 06:07 BiPap/CPAP ROUTINE Comment: Diagnosis: Came to ER after fall at home 10/06/24 15:14 EKG STAT Comment: Diagnosis: Came to ER after fall at home <SHEKHAR SALEH - Last Filed: 10/06/24 21:48> Final Diagnosis/Problem List - Final Discharge Diagnosis/Problem (1) Sepsis Status: Acute (2) Acute UTI (urinary tract infection) Status: Acute Code(s): N39.0 - URINARY TRACT INFECTION, SITE NOT SPECIFIED (3) Acute renal failure (ARF) Status: Acute (4) Fall Status: Acute Code(s): W19.XXXA - UNSPECIFIED FALL, INITIAL ENCOUNTER (5) Left flank pain Status: Acute Code(s): R10.9 - UNSPECIFIED ABDOMINAL PAIN (6) Diabetes mellitus Status: Acute Code(s): E11.9 - TYPE 2 DIABETES MELLITUS WITHOUT COMPLICATIONS (7) CAD (coronary artery disease) Status: Acute Code(s): I25.10 - ATHSCL HEART DISEASE OF [place] CORONARY ARTERY W/O ANG PCTRS (8) HTN (hypertension) Status: Acute Code(s): I10 - ESSENTIAL (PRIMARY) HYPERTENSION (9) History of prostate cancer Status: Acute Code(s): Z85.46 - PERSONAL HISTORY OF MALIGNANT NEOPLASM OF PROSTATE (10) Obesity (BMI 30-39.9) Status: Acute Code(s): E66.9 - OBESITY, UNSPECIFIED (11) HLD (hyperlipidemia) Status: Acute Code(s): E78.5 - HYPERLIPIDEMIA, UNSPECIFIED (12) Urinary retention Status: Acute Code(s): R33.9 - RETENTION OF URINE, UNSPECIFIED <KYLE TRUONG - Last Filed: 10/06/24 16:07> - Discharge Discharge Date: 10/06/24 <KYLE TRUONG - Last Filed: 10/06/24 16:07> <SHEKHAR SALEH - Last Filed: 10/06/24 21:48> - Discharge Disposition: Home, Self-Care Condition: Critical Prescriptions: New Tamsulosin HCl 0.4 mg [Flomax 0.4 MG] 0.4 mg PO DAILY cap Nitroglycerin 0.4 mg Tablet [Nitrostat 0.4 MG Tablet] 0.4 mg SL Q5MIN PRN MR X 3 PRN PRN Reason: Chest Pain Ceftriaxone Sodium [ROCEPHIN 1 GM / 100 ML NaCl] 1 gm IV Q24H10 iv piggy Continue Metoprolol Succinate 50 mg [Toprol Xl 50 MG] 50 mg PO DAILY Aspirin EC 81 mg [Ecotrin 81 mg] 81 mg PO DAILY Amlodipine Besylate 5 mg [Norvasc 5 mg] 10 mg PO DAILY Duloxetine HCl 30 mg [Cymbalta 30 MG Capsule] 60 mg PO DAILY Atorvastatin Calcium 40 mg PO DAILY Multivitamin 1 tab PO DAILY Hydrocodone/Acetaminophen [Hydrocodone-Acetamin 7.5-325] 1 tab PO Q6H PRN MDD 4 tabs PRN Reason: Moderate To Severe Pain Zolpidem Tartrate 10 mg [Ambien 10 MG] 10 mg PO HS Sertraline HCl 50 mg [Zoloft 50 mg Tablet] 50 mg PO HS Sacubitril/Valsartan [Entresto 49 mg-51 mg Tablet] 1 tab PO DAILY Insulin Degludec [Tresiba Flextouch U-100] 60 units SQ BID Famotidine 20 mg [Pepcid 20 MG] 20 mg PO DAILY Empagliflozin [Jardiance] 25 mg PO DAILY Apixaban [Eliquis 2.5 mg Tablet] 2.5 mg PO BID Amiodarone HCl 200 mg PO DAILY Follow up with: BERNADINE HUGO MD [Primary Care Provider] - SHONA Encounter - SHONA Encounter Attestation SHONA Encounter Attestation: "IhavepersonallysJAVI Noguera andhavediscussed pertinent aspects of their care with Kyle Colón agree with the history, physical exam (any modifications based on my personal exam will be noted below), assessment, and plan as outlined in original note. Please see immediately below for my summary of findings and additional assessment and plan along with any meaningful corrections/explanations to the Subjective/Objective portions of the SHONA note will be noted." My portion of the encounter took place via telemedicine. -Patient had an episode of chest pain this afternoon that lasted about 15-20 minutes and self resolved before nitroglycerin could be given. EKG was initially concerning for STEMI and telecardiology was consulted who recommended heparin drip and transfer for cath. Additionally ASA 325 was given. I discussed the case with the cardiologists at [facility] as well as Damian [facility] and both did not think the EKG was definitive for STEMI (afib with RBBB). First trop was negative. However because of patient's significant cardiac history of recent CABG in April 2024, he was deemed appropriate for transfer and further cardiac evaluation. [facility]. He was also noted to have hematuria in his linares bag today which is new. He will need urology and nephrology for his ongoing issues with urinary outlet obstruction, hydronephrosis due to kidney stones with recent left ureteral stent placement and PHILOMENA on CKD. <SHEKHAR SALEH - Last Filed: 10/06/24 21:48>
[2024-10-06 16:15] LABS: Hematocrit 39.4 % (40.1-51.0); Hemoglobin 12.6 g/dL (13.7-17.5); Mean Cell Volume 83.8 fL (79.0-92.2); Mean Corpuscular Hemoglobin 26.8 pg (25.7-32.2); Mean Platelet Volume 10.4 fL (9.4-12.4); Platelet Count 153 x10^3/uL (163-337); Red Cell Distribution Width 16.9 % (11.6-14.4)
[2024-10-06] MEDS: Heparin 25,000 units/D5W: USE ORDER SET PROTO 25,000 UNITS/250 ML BAG IV SCH (16:24)
[2024-10-06] MEDS ORDERED: Ecotrin 325 MG ONE (16:25)
[2024-10-06 16:31] LABS: INR 1.15 (0.8-3.0); PROTIME 12.4 SECONDS (9.4-12.5); PTT 31.5 SECONDS (25.1-36.5)
[2024-10-06] MEDS: Ecotrin 325 MG PO ONE (16:31)
[2024-10-06] MEDS ORDERED: BABY ASPIRIN 81 MG CHEW ONE (16:31)
[2024-10-06] MEDS: BABY ASPIRIN 81 MG CHEW PO ONE (16:33)
[2024-10-06 17:07] VITALS: TEMP 96
== END 2024-10-06 18:50 | disposition home or self-care (01) ==
LOC: ED 16:15 → MED SURG 10-04 00:44 → ICU 10-06 15:49
PROVIDERS: ADMIT Internal Medicine; ATTEND Internal Medicine
DX: A41.9 Sepsis, unspecified organism (principal); N39.0 Urinary tract infection, site not specified; A49.8 Other bacterial infections of unspecified site; N17.9 Acute kidney failure, unspecified; W19.XXXA Unspecified fall, initial encounter; R10.9 Unspecified abdominal pain; E11.9 Type 2 diabetes mellitus without complications; I25.10 Atherosclerotic heart disease of native coronary artery without angina pectoris; I10 Essential (primary) hypertension; R07.9 Chest pain, unspecified; Z85.46 Personal history of malignant neoplasm of prostate; E66.9 Obesity, unspecified; E78.5 Hyperlipidemia, unspecified; R33.9 Retention of urine, unspecified; Z79.899 Other long term (current) drug therapy; Z95.0 Presence of cardiac pacemaker; R31.9 Hematuria, unspecified; I48.91 Unspecified atrial fibrillation; Z79.01 Long term (current) use of anticoagulants
CPT/HCPCS: 36415; 74176; 80048; 80053; 81001; 82947; 83036; 83690; 84484; 85025; 85027; 85610; 85730; 87040; 87077; 87086; 87186; 93005; 94760; 96374; 96375; 96376; 99285; G0378; Q3014; 99284; J0696; J1644; J1817; J2270; J2405; J2543; A9270-GY

== ENCOUNTER 2025-06-16 22:04 | Emergency (ER) | payer MEDICARE ==
[2025-06-16 22:13] VITALS: TEMP 94.8
[2025-06-16 22:21] LABS: A-aADO2 421; ABG HEMOGLOBIN 13.3; ABG POTASSIUM 5.0 (3.5-5.1); ARTERIAL BLD GAS O2 SATURATION 99.6 % (95-100); ARTERIAL BLOOD GAS BASE EXCESS -7.1 (-2.0-2.0); ARTERIAL BLOOD GAS FIO2 100 %; ARTERIAL BLOOD GAS PCO2 41 mmHg (35-45); ARTERIAL BLOOD GAS PO2 241 mmHg (75-100); ARTERIAL BLOOD GAS TEMPERATURE 37.0 C; BIPAP(E) 6; BIPAP(I) 14; HCO3- 19.3 (22-28); HGB O2 SAT 98.1 g/dF (94-100); Methhemoglobin 0.7 % (1.4-1.5); paO2 pAO1 0.36
[2025-06-16 22:22] LABS: ABG SITE RIGHT RADIAL
--- NOTE | 2025-06-16 22:30 | ERPHSYRPT ---
- History of Present Illness Time Seen by Provider: 06/16/25 22:05 Source: patient, EMS, old records Exam Limitations: clinical condition Patient Subjective Stated Complaint: Pt is able to nod his head yes and no when asked questions. 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 Pt is lethargic but opens his eyes when his name is called. Pt arrives and placed on Bipap. Was put on Bipap per EMS and given a duo-neb treatment. They reported that he had wheezes throughout lungs. Upon arrival, lung sounds are clear and equal throughout. Noted 2+ pitting edema to bilateral lower extremities. Respirations are labored. Pt denies pain. States he feels a little better and is starting to breath easier. Skin is pale and clammy. Abdomen is distended. Physician History: This is an obese 80-year-old white male patient who was brought from home to the emergency department by the storehouse clerk service secondary to relatively sudden onset of shortness of breath without chest pain that worsened rapidly. The paramedics initially had the patient on CPAP. Patient was diaphoretic without nausea or vomiting symptoms. On arrival to the emergency department there was no oxygen on the patient. There is a left upper extremity IV line in place. On arrival to the emergency department patient was mildly lethargic but arousable and answers questions appropriately. Patient denies chest pain. He denies pain of any kind. Patient was seen immediately by respiratory therapy who put him on BiPAP. Patient was moving all his extremities without difficulty. 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 Seymour. Patient does not want to be transferred to [facility] in [place]. That was his specific request if he has to be transferred to another facility. Patient was to start spironolactone tomorrow, 06/17/2025. He has an echocardiogram and a nuclear medicine stress test scheduled for the end of the month. Patient has multiple medical problems including hypertension, depression, hyperlipidemia, coronary artery disease, diabetes, anxiety. Patient's provided additional, independent history. She also stated that the patient did take all of his medications today. Timing/Duration: today Activities at Onset: none Severity of Dyspnea-Max: moderate Severity of Dyspnea-Current: moderate Possible Cause: occasional episodes, chronic episodes Modifying Factors: Improves With: oxygen Associated Symptoms: weakness, No chest pain/discomfort Allergies/Adverse Reactions: Sulfa (Sulfonamide Antibiotics) Allergy (Verified 06/16/25 22:13) Hives NSAIDS (Non-Steroidal Anti-Inflamma Adverse Reaction (Verified 06/16/25 22:13) Home Medications: Aspirin EC 81 mg [Ecotrin 81 mg] 81 mg PO DAILY 08/29/22 [History] Atorvastatin Calcium 40 mg PO HS 08/29/22 [History] Duloxetine HCl 30 mg [Cymbalta 30 MG Capsule] 60 mg PO DAILY 08/29/22 [History] Metoprolol Succinate 50 mg [Toprol Xl 50 MG] 25 mg PO BID 08/29/22 [History] Empagliflozin [Jardiance] 25 mg PO DAILY 10/04/24 [History] Famotidine 20 mg [Pepcid 20 MG] 20 mg PO DAILY 10/04/24 [History] Insulin Degludec [Tresiba Flextouch U-100] 60 units SQ BID 10/04/24 [History] Sacubitril/Valsartan [Entresto 49 mg-51 mg Tablet] 1 tab PO DAILY 10/04/24 [History] Sertraline HCl 50 mg [Zoloft 50 mg Tablet] 50 mg PO HS 10/04/24 [History] LORazepam [Lorazepam] 1 mg PO HS 06/16/25 [History] Spironolactone [Aldactone] 25 mg PO DAILY 06/16/25 [History] Vibegron [Gemtesa] 75 mg PO DAILY 06/16/25 [History] Hx Tetanus, Diphtheria Vaccination/Date Given: No (UNKNOWN) Hx Influenza Vaccination/Date Given: No (UNKNOWN) Hx Pneumococcal Vaccination/Date Given: No (UNKNOWN) Immunizations Up to Date: No (UNKNOWN) Travel Risk - International Travel Have you traveled outside of the country in past 3 weeks: No (UNKNOWN) - Emerging Infectious Disease Are you exhibiting symptoms associated with any current EIDs: Yes Symptoms: Shortness of Breath - Review of Systems Constitutional: Weakness Eyes: No Symptoms Ears, Nose, & Throat: No Symptoms Respiratory: Dyspnea Cardiac: No Symptoms, No Chest Pain Abdominal/Gastrointestinal: No Symptoms Genitourinary Symptoms: No Symptoms Musculoskeletal: No Symptoms Skin: No Symptoms Neurological: Lethargy (Mildly lethargic but arousable), No Headache, No Speech Changes Psychological: No Symptoms Endocrine: No Symptoms Hematologic/Lymphatic: No Symptoms Immunological/Allergic: No Symptoms All Other Systems: Reviewed and Negative - Past Medical History Pertinent Past Medical History: Yes Neurological History: No Pertinent History ENT History: No Pertinent History Cardiac History: Hypertension, Myocardial Infarction ([place]) Respiratory History: Sleep Apnea Endocrine Medical History: Diabetes Type II Musculoskeletal History: No Pertinent History GI Medical History: Polyps History: No Pertinent History Psycho-Social History: Depression Male Reproductive Disorders: Prostate Cancer Other Medical History: rectal fissure - Past Surgical History Past Surgical History: Yes Neuro Surgical History: No Pertinent History Cardiac: Cardiac Catheterization, Cardiac Stent Respiratory: No Pertinent History Gastrointestinal: No Pertinent History Genitourinary: No Pertinent History Musculoskeletal: No Pertinent History Male Surgical History: Prostate Surgery Other Surgical History: baractic surgery 2014, protate cancer, prostatectomy, penile pump implant Significant Family History: no pertinent family hx - Social History Smoking Status: Former smoker Exposure to second hand smoke: No Drug Use: none - Social Determinants of Health Will the patient participate in the screening: Unable to obtain - Nursing Vital Signs Nursing Vital Signs: Initial Vital Signs Temperature 94.8 F 06/16/25 22:05 Pulse Rate 90 06/16/25 22:05 Respiratory Rate 30 H 06/16/25 22:05 Blood Pressure 164/102 06/16/25 22:05 O2 Sat by Pulse Oximetry 98 06/16/25 22:05 Pain Scale Pain Intensity 0 - Physical Exam General Appearance: mild distress, lethargy (Mildly lethargic but rousable), obese Eye Exam: PERRL/EOMI, eyes nml inspection Ears, Nose, Throat Exam: hearing grossly normal, normal ENT inspection, normal pharynx Neck Exam: normal inspection, non-tender, supple, full range of motion Respiratory Exam: respiratory distress, diminished breath sounds (Bilateral right greater than left), crackles/rales, No chest tenderness Cardiovascular/Chest Exam: normal heart sounds, regular rate/rhythm Abdominal/Gastrointestinal Exam: soft, normal bowel sounds, No tenderness Rectal Exam: not done Extremity Exam: non-tender, normal range of motion, pelvis stable, pedal edema (Bilateral feet and ankle) Neurologic Exam: oriented x 3, cooperative, manager client II-XII nml as tested, sensation nml Skin Exam: diaphoresis Lymphatic Exam: No adenopathy SpO2 Interpretation: hypoxic, ABG ordered, O2 applied SpO2: 99 O2 Delivery: BiPap - Course Nursing assessment & vital signs reviewed: Yes EKG Interpreted by Me: RATE (81), NORMAL AXIS, Right Bundle Branch Block, Other (Prolonged PA interval. No acute ischemia. QTc is 524. When compared to twelve-lead EKG dated 10/06/2024, today's twelve-lead EKG shows resolution of atrial fibrillation. The remainder appears unchanged.) Ordered Tests: Active Orders 24 hr Category Date Time Status Test Engine Mechanic STAT Care 06/16/25 22:23 Active EKG-ER Only STAT Care 06/16/25 22:20 Active IV Insertion STAT Care 06/16/25 22:20 Active IV Insertion-2nd Peripheral STAT Care 06/16/25 22:23 Active Oxygen-ED Only Nasal Cannula 2 lpm Care 06/16/25 23:26 Active Pulse Oximetry (ED) STAT Care 06/16/25 22:20 Active CHEST 1 VIEW (PORTABLE) Stat Exams 06/16/25 22:23 Taken ABG [ARTERIAL BLOOD GASES] Urgent Lab 06/16/25 23:19 Completed ARTERIAL BLOOD GASES Urgent Lab 06/16/25 22:20 Completed BLOOD CULTURE Stat Lab 06/16/25 22:44 Received BNPII [NT PRO BNPII] Stat Lab 06/16/25 23:10 Completed CBC W DIFF Stat Lab 06/16/25 22:30 Completed CMP Stat Lab 06/16/25 22:30 Completed Lactic Acid Stat Lab 06/16/25 22:20 Completed Lactic Acid Stat Lab 06/16/25 23:19 Completed MAGNESIUM Stat Lab 06/16/25 22:30 Completed PROCALCITONIN Stat Lab 06/16/25 22:30 Completed PROTIME WITH INR Stat Lab 06/16/25 22:30 Completed TROPONIN Q4H Lab 06/16/25 22:30 Completed TROPONIN Q4H Lab 06/17/25 00:20 Received TROPONIN Q4H Lab 06/17/25 06:30 Ordered BiPap/CPAP STAT RT 06/16/25 22:21 Active Medication Summary Generic Name Dose Route Start Last Admin Trade Name Freq PRN Reason Stop Dose Admin Ceftriaxone Sodium 1 gm in 100 mls @ 200 mls/hr 10/07/25 00:16 06/17/25 00:22 Rocephin 1 Gm / 100 Ml Nacl IV 06/17/25 00:45 200 mls/hr STAT ONE 200 mls/hr Administration Sodium Chloride 500 mls @ 500 mls/hr 06/17/25 00:26 06/17/25 00:30 Sodium Chloride 0.9% 500 Ml IV 06/17/25 01:25 500 mls/hr .Q1H ONE Administration Discontinued Medications Generic Name Dose Route Start Last Admin Trade Name Fede PRN Reason Stop Dose Admin Ceftriaxone Sodium Confirm 06/17/25 00:21 Rocephin 1 Gm / 100 Ml Nacl Administered 06/17/25 00:22 Dose 1 gm in 100 mls @ ud IV .STK-MED ONE Sodium Chloride Confirm 06/17/25 00:28 Sodium Chloride 0.9% 500 Ml Administered 06/17/25 00:29 Dose 500 mls @ ud IV .STK-MED ONE Lab/Rad Data: Laboratory Result Diagrams 06/16/25 22:30 06/16/25 22:30 Laboratory Results 06/16/25 06/16/25 06/16/25 Range/Units 23:19 23:19 23:10 WBC (4.23-9.07) x10^3/uL RBC (4.63-6.08) x10^6/uL Hgb (13.7-17.5) g/dL Hct (40.1-51.0) % MCV (79.0-92.2) fL MCH (25.7-32.2) pg MCHC (32.3-36.5) g/dL RDW (11.6-14.4) % Plt Count (163-337) x10^3/uL MPV (9.4-12.4) fL Gran % (34.0-67.9) % Immature Gran % (Auto) (0.001-0.429) % Nucleat RBC Rel Count (0.00-0.2) % Eos # (Auto) (0.04-0.54) x10^3/uL Immature Gran # (Auto) (0.001-0.031) x10^3u/L Absolute Lymphs (auto) (1.32-3.57) x10^3/uL Absolute Monos (auto) (0.30-0.82) x10^3/uL Absolute Nucleated RBC (0.00-0.012) x10^3u/L Lymphocytes % (21.8-53.1) % Monocytes % (5.3-12.2) % Eosinophils % (0.8-7.0) % Basophils % (0.2-1.2) % Absolute Granulocytes (1.78-5.38) x10^3/uL Basophils # (0.01-0.08) x10^3/uL PT (9.4-12.5) SECONDS INR (0.8-3.0) Puncture Site RIGHT BRACHIAL pCO2 41 (35-45) mmHg pO2 346 H* (75-100) mmHg Base Excess -2.9 L (-2.0-2.0) O2 Saturation 98.5 (94-100) g/dF ABG pH 7.35 (7.35-7.45) ABG HCO3 22.6 (22-28) ABG O2 Sat (Measured) 100.0 (95-100) % Ej Test NOT APPLICABLE A-a Gradient 316 a/A Ratio 0.52 Hemoglobin 12.4 Carboxyhemoglobin 0.8 (0.0-6.9) % THgb Methemoglobin 0.7 L (1.4-1.5) % Potassium 4.5 (3.5-5.1) Temperature 37.0 C POC O2 Flow Rate 100 % Inspiratory BiPAP 14 Expiratory BiPAP 6 Sodium (135-145) mmol/L Chloride (98-107) mmol/L Carbon Dioxide (22-30) mmol/L Anion Gap (5-15) MEQ/L BUN (9-20) mg/dL Creatinine (0.66-1.25) mg/dL Estimated GFR ML/MIN Glucose (74-106) mg/dL Lactic Acid 1.5 (0.4-2.0) Calcium (8.4-10.2) mg/dL Magnesium (1.6-2.3) mg/dL Total Bilirubin (0.2-1.3) mg/dL AST (17-59) U/L ALT (0-50) U/L Alkaline Phosphatase (38-126) U/L Troponin I (0.000-0.033) ng/mL NT-Pro-B Natriuret Pep 267 (<300) pg/mL Serum Total Protein (6.3-8.2) g/dL Albumin (3.5-5.0) g/dL Procalcitonin (0.030-0.080) ng/mL Influenza Type A Ag (NEGATIVE) Influenza Type B Ag (NEGATIVE) RSV (PCR) (NEGATIVE) SARS-CoV-2 (PCR) (NEGATIVE) Slides for Path Review 06/16/25 06/16/25 06/16/25 Range/Units 22:44 22:30 22:30 WBC (4.23-9.07) x10^3/uL RBC (4.63-6.08) x10^6/uL Hgb (13.7-17.5) g/dL Hct (40.1-51.0) % MCV (79.0-92.2) fL MCH (25.7-32.2) pg MCHC (32.3-36.5) g/dL RDW (11.6-14.4) % Plt Count (163-337) x10^3/uL MPV (9.4-12.4) fL Gran % (34.0-67.9) % Immature Gran % (Auto) (0.001-0.429) % Nucleat RBC Rel Count (0.00-0.2) % Eos # (Auto) (0.04-0.54) x10^3/uL Immature Gran # (Auto) (0.001-0.031) x10^3u/L Absolute Lymphs (auto) (1.32-3.57) x10^3/uL Absolute Monos (auto) (0.30-0.82) x10^3/uL Absolute Nucleated RBC (0.00-0.012) x10^3u/L Lymphocytes % (21.8-53.1) % Monocytes % (5.3-12.2) % Eosinophils % (0.8-7.0) % Basophils % (0.2-1.2) % Absolute Granulocytes (1.78-5.38) x10^3/uL Basophils # (0.01-0.08) x10^3/uL PT (9.4-12.5) SECONDS INR (0.8-3.0) Puncture Site pCO2 (35-45) mmHg pO2 (75-100) mmHg Base Excess (-2.0-2.0) O2 Saturation (94-100) g/dF ABG pH (7.35-7.45) ABG HCO3 (22-28) ABG O2 Sat (Measured) (95-100) % Ej Test A-a Gradient a/A Ratio Hemoglobin Carboxyhemoglobin (0.0-6.9) % THgb Methemoglobin (1.4-1.5) % Potassium (3.5-5.1) Temperature C POC O2 Flow Rate % Inspiratory BiPAP Expiratory BiPAP Sodium (135-145) mmol/L Chloride (98-107) mmol/L Carbon Dioxide (22-30) mmol/L Anion Gap (5-15) MEQ/L BUN (9-20) mg/dL Creatinine (0.66-1.25) mg/dL Estimated GFR ML/MIN Glucose (74-106) mg/dL Lactic Acid (0.4-2.0) Calcium (8.4-10.2) mg/dL Magnesium (1.6-2.3) mg/dL Total Bilirubin (0.2-1.3) mg/dL AST (17-59) U/L ALT (0-50) U/L Alkaline Phosphatase (38-126) U/L Troponin I 0.021 (0.000-0.033) ng/mL NT-Pro-B Natriuret Pep (<300) pg/mL Serum Total Protein (6.3-8.2) g/dL Albumin (3.5-5.0) g/dL Procalcitonin 0.125 H (0.030-0.080) ng/mL Influenza Type A Ag NEGATIVE (NEGATIVE) Influenza Type B Ag NEGATIVE (NEGATIVE) RSV (PCR) NEGATIVE (NEGATIVE) SARS-CoV-2 (PCR) NEGATIVE (NEGATIVE) Slides for Path Review 06/16/25 06/16/25 06/16/25 Range/Units 22:30 22:30 22:30 WBC 16.4 H (4.23-9.07) x10^3/uL RBC 5.90 (4.63-6.08) x10^6/uL Hgb 14.4 (13.7-17.5) g/dL Hct 47.5 (40.1-51.0) % MCV 80.5 (79.0-92.2) fL MCH 24.4 L (25.7-32.2) pg MCHC 30.3 L (32.3-36.5) g/dL RDW 18.5 H (11.6-14.4) % Plt Count 323 (163-337) x10^3/uL MPV 10.8 (9.4-12.4) fL Gran % 40.8 (34.0-67.9) % Immature Gran % (Auto) 0.5 H (0.001-0.429) % Nucleat RBC Rel Count 0.0 (0.00-0.2) % Eos # (Auto) 0.35 (0.04-0.54) x10^3/uL Immature Gran # (Auto) 0.08 H (0.001-0.031) x10^3u/L Absolute Lymphs (auto) 8.33 H (1.32-3.57) x10^3/uL Absolute Monos (auto) 0.85 H (0.30-0.82) x10^3/uL Absolute Nucleated RBC 0.00 (0.00-0.012) x10^3u/L Lymphocytes % 50.9 (21.8-53.1) % Monocytes % 5.2 L (5.3-12.2) % Eosinophils % 2.1 (0.8-7.0) % Basophils % 0.5 (0.2-1.2) % Absolute Granulocytes 6.66 H (1.78-5.38) x10^3/uL Basophils # 0.08 (0.01-0.08) x10^3/uL PT 11.4 (9.4-12.5) SECONDS INR 1.02 (0.8-3.0) Puncture Site pCO2 (35-45) mmHg pO2 (75-100) mmHg Base Excess (-2.0-2.0) O2 Saturation (94-100) g/dF ABG pH (7.35-7.45) ABG HCO3 (22-28) ABG O2 Sat (Measured) (95-100) % Ej Test A-a Gradient a/A Ratio Hemoglobin Carboxyhemoglobin (0.0-6.9) % THgb Methemoglobin (1.4-1.5) % Potassium 4.8 (3.5-5.1) Temperature C POC O2 Flow Rate % Inspiratory BiPAP Expiratory BiPAP Sodium 140 (135-145) mmol/L Chloride 110 H (98-107) mmol/L Carbon Dioxide 22 (22-30) mmol/L Anion Gap 12.6 (5-15) MEQ/L BUN 26 H (9-20) mg/dL Creatinine 1.67 H (0.66-1.25) mg/dL Estimated GFR 40.9 ML/MIN Glucose 189 H (74-106) mg/dL Lactic Acid (0.4-2.0) Calcium 8.8 (8.4-10.2) mg/dL Magnesium 1.8 (1.6-2.3) mg/dL Total Bilirubin 0.10 L (0.2-1.3) mg/dL AST 26 (17-59) U/L ALT 20 (0-50) U/L Alkaline Phosphatase 121 (38-126) U/L Troponin I (0.000-0.033) ng/mL NT-Pro-B Natriuret Pep (<300) pg/mL Serum Total Protein 6.9 (6.3-8.2) g/dL Albumin 3.9 (3.5-5.0) g/dL Procalcitonin (0.030-0.080) ng/mL Influenza Type A Ag (NEGATIVE) Influenza Type B Ag (NEGATIVE) RSV (PCR) (NEGATIVE) SARS-CoV-2 (PCR) (NEGATIVE) Slides for Path Review YES 06/16/25 06/16/25 Range/Units 22:20 22:20 WBC (4.23-9.07) x10^3/uL RBC (4.63-6.08) x10^6/uL Hgb (13.7-17.5) g/dL Hct (40.1-51.0) % MCV (79.0-92.2) fL MCH (25.7-32.2) pg MCHC (32.3-36.5) g/dL RDW (11.6-14.4) % Plt Count (163-337) x10^3/uL MPV (9.4-12.4) fL Gran % (34.0-67.9) % Immature Gran % (Auto) (0.001-0.429) % Nucleat RBC Rel Count (0.00-0.2) % Eos # (Auto) (0.04-0.54) x10^3/uL Immature Gran # (Auto) (0.001-0.031) x10^3u/L Absolute Lymphs (auto) (1.32-3.57) x10^3/uL Absolute Monos (auto) (0.30-0.82) x10^3/uL Absolute Nucleated RBC (0.00-0.012) x10^3u/L Lymphocytes % (21.8-53.1) % Monocytes % (5.3-12.2) % Eosinophils % (0.8-7.0) % Basophils % (0.2-1.2) % Absolute Granulocytes (1.78-5.38) x10^3/uL Basophils # (0.01-0.08) x10^3/uL PT (9.4-12.5) SECONDS INR (0.8-3.0) Puncture Site RIGHT RADIAL pCO2 41 (35-45) mmHg pO2 241 H* (75-100) mmHg Base Excess -7.1 L (-2.0-2.0) O2 Saturation 98.1 (94-100) g/dF ABG pH 7.28 L (7.35-7.45) ABG HCO3 19.3 L (22-28) ABG O2 Sat (Measured) 99.6 (95-100) % Ej Test NOT APPLICABLE A-a Gradient 421 a/A Ratio 0.36 Hemoglobin 13.3 Carboxyhemoglobin 0.8 (0.0-6.9) % THgb Methemoglobin 0.7 L (1.4-1.5) % Potassium 5.0 (3.5-5.1) Temperature 37.0 C POC O2 Flow Rate 100 % Inspiratory BiPAP 14 Expiratory BiPAP 6 Sodium (135-145) mmol/L Chloride (98-107) mmol/L Carbon Dioxide (22-30) mmol/L Anion Gap (5-15) MEQ/L BUN (9-20) mg/dL Creatinine (0.66-1.25) mg/dL Estimated GFR ML/MIN Glucose (74-106) mg/dL Lactic Acid 3.8 H (0.4-2.0) Calcium (8.4-10.2) mg/dL Magnesium (1.6-2.3) mg/dL Total Bilirubin (0.2-1.3) mg/dL AST (17-59) U/L ALT (0-50) U/L Alkaline Phosphatase (38-126) U/L Troponin I (0.000-0.033) ng/mL NT-Pro-B Natriuret Pep (<300) pg/mL Serum Total Protein (6.3-8.2) g/dL Albumin (3.5-5.0) g/dL Procalcitonin (0.030-0.080) ng/mL Influenza Type A Ag (NEGATIVE) Influenza Type B Ag (NEGATIVE) RSV (PCR) (NEGATIVE) SARS-CoV-2 (PCR) (NEGATIVE) Slides for Path Review - Progress Progress: improved, re-examined Air Movement: fair Progress Note: 06/16/25 22:29 My medical decision making and the assignment of moderate to high complexity of this patient's medical issue today is based on review of the patient's past medical history, reviewed patient's medication list, reviewed patient drug allergy list, history of present illness and physical findings on examination. The workup in this patient includes RT evaluation and placement on BiPAP, ABG, DuoNeb treatment, CBC, CMP, BNP, troponin level, chest x-ray, viral swabs, procalcitonin level. Differential diagnosis includes but is not limited to myocardial infarction, COPD exacerbation, CHF exacerbation, pulmonary infiltrate, viral illness, arrhythmia, anemia 06/17/25 00:40 I interpreted the patient's laboratory data results. Based on laboratory data results the patient has a white blood cell count of 16.4 with an elevated procalcitonin level. His initial lactic acid level is elevated at 3.8. Patient has a normal CO2 and normal anion gap. The GFR has decreased in 1 week from 50 down to 40.9. Patient has normal BNP and normal troponin level initially. I interpreted the patient's preliminary chest x-ray report. I see bibasilar atelectasis versus fluid versus pulmonary infiltrate. I spoke with [facility] hospitalist, Dr. Patel. I reviewed the patient chief complaint, past medical history, physical findings on examination and workup results with her. She accepts the patient in transfer. Blood Culture(s) Obtained: Yes Antibiotics given: Yes Counseled pt/family regarding: lab results, diagnosis, rad results Medical Desision Making - Independent Historian Additional History obtained from: Spouse, Scientologist/EMT - Diagnostic Testing Diagnostic test were ordered, analyzed, and reviewed by me: Yes Radiological Interpretation: Interpreted by me, Teleradiologist Report - Risk of complications The pt has a high risk of morbidity or mortality based on: Decision regarding hospitilization or escalation of hosp level of care - Departure Departure Disposition: Transfer Clinical Impression: Bilateral pulmonary infiltrates on chest x-ray, Leukocytosis, Lactic acidemia, Hypoxia Condition: Fair Critical Care Time: Yes Critical Care Time(excluding separately billable procedures): Critical 30-74 mins (50) Referrals: BERNADINE HUGO MD [Primary Care Provider, INTERNAL MEDICINE] - Follow up/PCP as directed
[2025-06-16 23:02] LABS: BASOPHIL % 0.5 % (0.2-1.2); Basophil (Absolute #) 0.08 x10^3/uL (0.01-0.08); Eosinophil (Absolute #) 0.35 x10^3/uL (0.04-0.54); Hematocrit 47.5 % (40.1-51.0); Hemoglobin 14.4 g/dL (13.7-17.5); IMMATURE GRAN # 0.08 x10^3u/L (0.001-0.031); IMMATURE GRAN % 0.5 % (0.001-0.429); Lymphocyte (Absolute #) 8.33 x10^3/uL (1.32-3.57); Mean Corpuscular Hemoglobin 24.4 pg (25.7-32.2); Mean Corpuscular Hgb Concent. 30.3 g/dL (32.3-36.5); Monocyte (Absolute #) 0.85 x10^3/uL (0.30-0.82); NUCLEATED RBC # 0.00 x10^3u/L (0.00-0.012); NUCLEATED RBC % 0.0 % (0.00-0.2); Platelet Count 323 x10^3/uL (163-337); Red Blood Count 5.90 x10^6/uL (4.63-6.08); White Blood Count 16.4 x10^3/uL (4.23-9.07)
[2025-06-16 23:16] LABS: INR 1.02 (0.8-3.0); PROTIME 11.4 SECONDS (9.4-12.5)
[2025-06-16 23:18] LABS: Calcium 8.8 mg/dL (8.4-10.2); Carbon Dioxide 22.0 mmol/L (22-30); Creatinine 1 1.67 mg/dL (0.66-1.25); EST GLOMERULAR FILTRATION RATE 40.9 ML/MIN; Glucose 189.0 mg/dL (74-106); Potassium 4.8 mmol/L (3.5-5.1); SGOT/AST 26.0 U/L (17-59); SGPT/ALT 20.0 U/L (0-50); Total Protein 6.9 g/dL (6.3-8.2)
[2025-06-16 23:21] LABS: A-aADO2 316; ABG HEMOGLOBIN 12.4; ABG POTASSIUM 4.5 (3.5-5.1); ABG SITE RIGHT BRACHIAL; ARTERIAL BLD GAS O2 SATURATION 100.0 % (95-100); ARTERIAL BLOOD GAS BASE EXCESS -2.9 (-2.0-2.0); ARTERIAL BLOOD GAS FIO2 100 %; ARTERIAL BLOOD GAS PCO2 41 mmHg (35-45); ARTERIAL BLOOD GAS PO2 346 mmHg (75-100); ARTERIAL BLOOD GAS TEMPERATURE 37.0 C; BIPAP(E) 6; BIPAP(I) 14; HCO3- 22.6 (22-28); HGB O2 SAT 98.5 g/dF (94-100); Methhemoglobin 0.7 % (1.4-1.5); paO2 pAO1 0.52
[2025-06-16 23:32] LABS: INFLUENZA A NEGATIVE (NEGATIVE); INFLUENZA B NEGATIVE (NEGATIVE); RESPIRATORY SYNCTIAL VIRUS NEGATIVE (NEGATIVE); SARS-CoV-2 Xpert Express NEGATIVE (NEGATIVE)
[2025-06-17 00:12] LABS: Slide Review 1 YES
[2025-06-17] MEDS ORDERED: ROCEPHIN 1 GM / 100 ML NaCl 1 GM/100 ML IVPB IV ONE (00:21)
[2025-06-17] MEDS: ROCEPHIN 1 GM / 100 ML NaCl 1 GM/100 ML IVPB IV ONE (00:22)
[2025-06-17 01:02] VITALS: O2SAT 96
[2025-06-17] MEDS ORDERED: HEPARIN 5000 UNITS/0.5 ML (HIGH RISK MED) ONE (01:25)
[2025-06-17] MEDS: HEPARIN 5000 UNITS/0.5 ML (HIGH RISK MED) IV ONE (01:27)
[2025-06-17 02:07] VITALS: BP 112/70; PULSE 70; RESP 20
--- NOTE | 2025-06-17 08:44 | XRAY ---
Indication: Short of breath. Comparison: None Portable chest demonstrates bibasilar infiltrates versus atelectasis, left greater than right. No consolidation/large effusion. Heart enlarged with CABG and tortuous descending aorta. Bony thorax intact with osteopenia and mild degenerative changes.
== END 2025-06-17 02:10 | disposition short-term general hospital (02) ==
LOC: ED 22:04
DX: J18.9 Pneumonia, unspecified organism (principal); R91.8 Other nonspecific abnormal finding of lung field; D72.829 Elevated white blood cell count, unspecified; E87.20 Acidosis, unspecified; R09.02 Hypoxemia; R79.89 Other specified abnormal findings of blood chemistry; I10 Essential (primary) hypertension; E11.9 Type 2 diabetes mellitus without complications; Z79.84 Long term (current) use of oral hypoglycemic drugs; Z79.4 Long term (current) use of insulin; Z79.899 Other long term (current) drug therapy